=== PATIENT | male | born 1950 | race African-American/Black ===

== ENCOUNTER 2019-02-26 18:50 | Inpatient (IN) | payer MEDICARE, MEDICAID ==
[~2019-02-26] VITALS: Ht 190.5 cm; Wt 90.8 kg
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
[2019-02-26] MEDS ORDERED: IV RINGERS SOLUTION,LACTATED 1,000 ML IV SCH (19:15)
[2019-02-26 19:42] LABS: BASO % 1 % (0-3); EOS % 1 % (0-3); HEMATOCRIT 39.3 % (39.0-53.0); HEMOGLOBIN 12.9 g/dL (13.0-17.5); LYMPH # 1.8 x10^3/uL (1.0-4.8); LYMPH % 33 % (24-48); MEAN CORPUSCULAR HEMOGLOBIN 31 pg (25-35); MEAN CORPUSCULAR HGB CONC 33 g/dL (31-37); MEAN CORPUSCULAR VOLUME 95 fL (79-100); MONO # 0.7 x10^3/uL (0.0-1.1); MONO % 14 % (0-9); NEUT # 2.8 x10^3uL (1.8-7.7); NEUT % 52 % (31-73); PLATELET COUNT 87 x10^3/uL (140-400); RED BLOOD COUNT 4.13 x10^6/uL (4.30-5.70); WHITE BLOOD COUNT 5.5 x10^3/uL (4.0-11.0)
[2019-02-26] MEDS ORDERED: ZIPRASIDONE 20 MG CAPSULE. PO STA (19:53)
[2019-02-26] MEDS ORDERED: diphenhydrAMINE HCL 25 MG CAPSULE PO ONE ×2 (20:00)
[2019-02-26] MEDS ORDERED: LORazepam 1 MG TABLET PO ONE ×2 (20:00)
[2019-02-26] MEDS ORDERED: MEDR10TA3 PO (20:05)
[2019-02-26] MEDS ORDERED: SERT50TA PO (20:05)
[2019-02-26] MEDS ORDERED: ZIPR40CA2 PO (20:05)
[2019-02-26] MEDS ORDERED: DIVA250T PO (20:05)
[2019-02-26] MEDS ORDERED: [UNRECOGNIZED DRUG - CODE] TP (20:05)
[2019-02-26] MEDS ORDERED: DIVA500T4 PO (20:05)
[2019-02-26] MEDS ORDERED: TRAZ-86 PO (20:05)
[2019-02-26] MEDS ORDERED: ACET500T68 PO (20:05)
[2019-02-26] MEDS ORDERED: ZIPR20CA2 PO (20:05)
[2019-02-26] MEDS ORDERED: LACT20SO PO (20:05)
[2019-02-26 20:07] LABS: ALBUMIN 3.8 g/dL (3.4-5.0); CALCIUM 9.2 mg/dL (8.5-10.1); CREATININE 1.1 mg/dL (0.7-1.3); DIRECT BILIRUBIN 0.2 mg/dL (0.0-0.2); GFR 80.3; MAGNESIUM 2.1 mg/dL (1.8-2.4); POTASSIUM 4.2 mmol/L (3.5-5.1); TOTAL BILIRUBIN 0.7 mg/dL (0.2-1.0); TOTAL PROTEIN 7.1 g/dL (6.4-8.2)
[2019-02-26 20:54] LABS: SEDIMENTATION RATE 5 (0-15)
[2019-02-26] MEDS ORDERED: ZIPRASIDONE IM 20 MG VIAL. IM ONE ×3 (21:09→22:00)
[2019-02-26 21:36] LABS: BARBITURATES NEG (NEG); BENZODIAZEPINES NEG (NEG); CANNABINOIDS NEG (NEG); COCAINE NEG (NEG); METHADONE NEG (NEG); OPIATES NEG (NEG); PHENCYCLIDINE NEG (NEG)
[2019-02-26 21:40] LABS: AMPHETAMINE/METHAMPHETAMINE NEG (NEG)
[2019-02-26 21:55] LABS: BILIRUBIN,URINE NEG (NEG); CLARITY,URINE CLEAR; COLOR,URINE YELLOW; GLUCOSE,URINE NEG (NEG)
[2019-02-26 21:56] LABS: BACTERIA,URINE 0 /HPF (0-FEW); NITRITE,URINE NEG (NEG); RBC,URINE 0 /HPF (0-2); SQUAMOUS EPITHELIAL CELL,UR FEW /LPF; UROBILINOGEN,URINE 0.2 mg/dL (0.2 mg/dL); WBC,URINE OCC /HPF (0-4)
--- NOTE | 2019-02-26 21:59 | RAD ---
Exam: CT head INDICATION: Mental status change TECHNIQUE: Sequential axial images through the head were obtained without the administration of IV contrast. Comparisons: None FINDINGS: No focal parenchymal lesion or hemorrhage is identified. There is no midline shift or sulcal effacement. No acute vascular territory infarction is identified. Miller-white distinction is preserved. The ventricular system is within normal limits without compression hydrocephalus. The basal cisterns are well maintained. The visualized portions of the paranasal sinuses and mastoid air cells are well-pneumatized. No acute fractures. IMPRESSION: No acute intracranial abnormality. Exposure: One or more of the following in the visualized dose reduction techniques were utilized for this examination: 1. Automated exposure control 2. Adjustment of the MA and/or KV according to patient size Use of iterative of reconstructive technique Electronically signed by: Esha Rodrigues MD (02/26/2019 9:56 PM) [facility]
--- NOTE | 2019-02-26 22:33 | RAD ---
Exam: Chest one view INDICATION: Dyspnea TECHNIQUE: Frontal view of the chest Comparisons: None FINDINGS: The cardiomediastinal silhouette and pulmonary vessels are within normal limits. The lung and pleural spaces are clear. IMPRESSION: No acute cardiopulmonary process. Electronically signed by: Esha Rodrigues MD (02/26/2019 10:30 PM) [facility]
[2019-02-26] MEDS ORDERED: MAG HYDROX/AL HYDROX/SIMETH 30 ML ORAL.SUSP PO PRN (23:45)
[2019-02-26] MEDS ORDERED: MAGNESIUM HYDROXIDE 2,400 MG/30 ML ORAL.SUSP. PO PRN (23:45)
[2019-02-26] MEDS ORDERED: METHYL SALICYLATE/MENTHOL TOPICAL OINTMENT 29GM TUBE. TP PRN (23:45)
[2019-02-26] MEDS ORDERED: NON FORMULARY ITEM (Acetaminophen 500 MG) PO PRN (23:45)
[2019-02-26] MEDS ORDERED: ACETAMINOPHEN 325 MG TABLET PO PRN (23:45)
[2019-02-27 00:09] VITALS: BP 136/80
--- NOTE | 2019-02-27 00:15 | NUR ---
Admission Note with Justification for Admission to [facility] Patient admitted to [facility] for protective oversight for emergency stabilization of acute psychiatric crisis. Pt admitted from: [facility] ER/ [facility] Mode of arrival: EMS Accompanied By: EMS/ [facility] Nursing Yarn Worker Precipitating behaviors that initiated intake and admission: aggressive, increased agitation, combative- striking out at other residents and staff, threatening to kill others, and non-compliant with cares. Description of failure of out patient attempts at stabilization in previous setting list behavior and medication trials: Medication changes to Depakote and Geodon, psychiatry appointments, ER visit, and 1:1 supervision. Behaviors and assessment findings upon admission: Pt is sedated upon arrival r/t medications administered in the ER. Staff provided grecia care and changed pt into a hospital gown, assessment completed. Bed low and locked, alarm in place. Plan: Admit for protective oversight for adjustment and stabilization of medications, behaviors and mood. Intense treatment regimen including groups, medication adjustments, therapy, consistent regimen for ADL's, self care, and sleep hygiene. Daily monitoring by Inpatient staff, Psychiatry, and Medical Physician.
--- NOTE | 2019-02-27 02:02 | EKG ---
[address] [address] Test Date: 2019-02-26 Test Time: 19:05:09 Pat Name: ZENON HAM Department: Room: [facility] 1 Gender: M Bank Note Designer: ARMEN : 1950 Requested By: SELWYN CRUZ Order Number: [id number] Reading MD: Hiren Hernandez MD Measurements Intervals [place] Rate: 95 P: -56 SC: 144 QRS: 3 QRSD: 68 T: 53 QT: 346 QTc: 438 Interpretive Statements SINUS RHYTHM PAC Electronically Signed On 03-16-2019 23:20:50 CDT by Hiren Hernandez MD
[2019-02-27 04:19] VITALS: BP 118/75
[2019-02-27 07:12] LABS: VAL ACID 45 mcg/mL (50-100)
[2019-02-27 07:47] LABS: BASO % 1 % (0-3); EOS # 0.1 x10^3/uL (0.0-0.7); EOS % 2 % (0-3); HEMOGLOBIN 12.8 g/dL (13.0-17.5); LYMPH # 1.2 x10^3/uL (1.0-4.8); LYMPH % 36 % (24-48); MEAN CORPUSCULAR HEMOGLOBIN 32 pg (25-35); MEAN CORPUSCULAR HGB CONC 33 g/dL (31-37); MEAN CORPUSCULAR VOLUME 96 fL (79-100); MONO # 0.4 x10^3/uL (0.0-1.1); MONO % 12 % (0-9); NEUT # 1.7 x10^3uL (1.8-7.7); NEUT % 50 % (31-73); PLATELET COUNT 83 x10^3/uL (140-400); RED BLOOD COUNT 4.06 x10^6/uL (4.30-5.70); RED CELL DISTRIBUTION WIDTH 13.1 % (11.5-14.5); WHITE BLOOD COUNT 3.4 x10^3/uL (4.0-11.0)
[2019-02-27] MEDS: DIVALPROEX ER 250 MG TAB.ER.24H. PO SCH ×2 (08:06→09:19)
[2019-02-27] MEDS: medroxyPROGESTERone 5 MG TABLET PO SCH ×2 (08:06→09:19)
[2019-02-27] MEDS: SERTRALINE 50 MG TABLET. PO SCH ×2 (08:06→09:19)
[2019-02-27] MEDS: ZIPRASIDONE 40 MG CAPSULE. PO SCH ×5 (08:07→15:50)
[2019-02-27] MEDS: LACTULOSE 20 GM/30 ML SOLUTION. PO SCH ×2 (08:07→09:19)
[2019-02-27 08:09] LABS: ALBUMIN 3.5 g/dL (3.4-5.0); CALCIUM 9.2 mg/dL (8.5-10.1); CREATININE 1.1 mg/dL (0.7-1.3); GFR 80.3; TOTAL PROTEIN 6.9 g/dL (6.4-8.2)
[2019-02-27] MEDS: VITS A & D/LANOLIN TOPICAL OINTMENT 56GM TUBE. TP SCH ×2 (09:00→20:28)
--- NOTE | 2019-02-27 10:31 | NUR ---
Sleeping without observed distress since 7 a.m. Has moved position in bed, respirations non labored. Will continue to monitor. PCs to SW and intake nurse to discuss paperwork signed by facility prior to arriving to [facility]. Clarification awaiting after DPOA contacted by [facility].
[2019-02-27] MEDS ORDERED: ZIPRASIDONE 20 MG CAPSULE. PO SCH (13:00)
--- NOTE | 2019-02-27 15:19 | NUR ---
Awoke around 13:00 after lunch. Had been incontinent of urine. Up with assist of 3 to bathroom. Pt. unable to bend knees to sit on the toilet. Finally he was redirected to sit in bedside chair where his clothes were changed and grecia care done. Ambulated to day room to eat lunch. Required much assistance. Took meds whole in pudding, chewing up pills. Sat with eyes closed, much prompting needed for him to open eyes. He did feed self some items with finger food. Speech coherent when he did reply, but not oriented to anything. Would say "yes maam" then eventually would remark "I am sitting up!" After eating, he sat in chair in dayroom, catatonic type posture, then leaning to one side. Escorted back to bed with assist of two per w/c. Very stiff, and difficult to direct to bend knees. Sleeping without observed distress since, HOB slightly elevated.
--- NOTE | 2019-02-27 15:50 | NUR ---
Medication selected in error. not given, returned and pt. is sedated as a.m. meds were not taken until 1300.
[2019-02-27 16:07] LABS: THYROXINE 5.3 ug/dL (4.5-12.0)
[2019-02-27 16:19] VITALS: BP 153/83
--- NOTE | 2019-02-27 17:36 | NUR ---
Pt. has continued to sleep this afternoon, since placed back in bed after unable to sit up safely in the dayroom. Did not admin. 1300 Geodon due to sedation. Resps non labored, turns self in bed occasionally. Did not arouse to voice when Dr. Soni assessed.
[2019-02-27] MEDS: traZODone 100 MG TABLET. PO SCH (20:28)
[2019-02-27 20:56] VITALS: BP 115/75
[2019-02-27] MEDS ORDERED: DIVALPROEX ER 500 MG TAB.ER.24H PO SCH (21:00)
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
--- NOTE | 2019-02-27 22:59 | PDOC ---
Exam Note: German Note: Please also refer to the separate dictated note~for this date of service dictated separately.~Patient seen individually. Discussed the patient with Nursing staff reviewed the chart.~Reviewed interim history and current functioning. Reviewed vital signs,~Labs/ Radiology~and current medications noted below. Continue current treatment with the changes noted in the dictated addendum note Assessment: Vital Signs/I&O: Vital Signs Date Time Temp Pulse Resp B/P (MAP) Pulse Ox O2 Delivery O2 Flow Rate FiO2 02/27/19 20:56 84 115/75 (88) 02/27/19 16:19 97.5 18 98 02/27/19 04:19 Room Air Labs: Laboratory Tests Test 02/27/19 07:12 White Blood Count 3.4 x10^3/uL (4.0-11.0) L Red Blood Count 4.06 x10^6/uL (4.30-5.70) L Hemoglobin 12.8 g/dL (13.0-17.5) L Hematocrit 39.0 % (39.0-53.0) Mean Corpuscular Volume 96 fL (79-100) Mean Corpuscular Hemoglobin 32 pg (25-35) Mean Corpuscular Hemoglobin Concent 33 g/dL (31-37) Red Cell Distribution Width 13.1 % (11.5-14.5) Platelet Count 83 x10^3/uL (140-400) L Neutrophils (%) (Auto) 50 % (31-73) Lymphocytes (%) (Auto) 36 % (24-48) Monocytes (%) (Auto) 12 % (0-9) H Eosinophils (%) (Auto) 2 % (0-3) Basophils (%) (Auto) 1 % (0-3) Neutrophils # (Auto) 1.7 x10^3uL (1.8-7.7) L Lymphocytes # (Auto) 1.2 x10^3/uL (1.0-4.8) Monocytes # (Auto) 0.4 x10^3/uL (0.0-1.1) Eosinophils # (Auto) 0.1 x10^3/uL (0.0-0.7) Basophils # (Auto) 0.0 x10^3/uL (0.0-0.2) Sodium Level 144 mmol/L (136-145) Potassium Level 4.0 mmol/L (3.5-5.1) Chloride Level 108 mmol/L (98-107) H Carbon Dioxide Level 28 mmol/L (21-32) Anion Gap 8 (6-14) Blood Urea Nitrogen 20 mg/dL (8-26) Creatinine 1.1 mg/dL (0.7-1.3) Estimated GFR (Cockcroft-Gault) 80.3 BUN/Creatinine Ratio 18 (6-20) Glucose Level 91 mg/dL (70-99) Calcium Level 9.2 mg/dL (8.5-10.1) Total Bilirubin 1.0 mg/dL (0.2-1.0) Aspartate Amino Transferase (AST) 16 U/L (15-37) Alanine Aminotransferase (ALT) 18 U/L (16-63) Alkaline Phosphatase 44 U/L (46-116) L Total Protein 6.9 g/dL (6.4-8.2) Albumin 3.5 g/dL (3.4-5.0) Albumin/Globulin Ratio 1.0 (1.0-1.7) Current Medications: Meds: Current Medications Medications (Trade) Dose Ordered Sig/Edward Route PRN Reason Start Time Stop Time Status Last Admin Dose Admin Multi-Ingredient Ointment (Analgesic Vale) 1 baljinder PRN QID PRN TP MUSCLE PAIN 02/26/19 23:45 02/27/19 09:20 Sertraline HCl (Zoloft) 50 mg DAILY PO 02/27/19 09:00 02/27/19 09:19 Divalproex Sodium (Depakote Er) 750 mg DAILY PO 02/27/19 09:00 02/27/19 21:26 DC 02/27/19 09:19 Divalproex Sodium (Depakote Er) 1,000 mg QHS PO 02/27/19 21:00 02/27/19 21:26 DC 02/27/19 20:28 Medroxyprogesterone Acetate (Provera) 10 mg DAILY PO 02/27/19 09:00 02/27/19 09:19 Trazodone HCl (Desyrel) 100 mg QHS PO 02/27/19 21:00 02/27/19 20:28 Ziprasidone (Geodon) 40 mg BID PO 02/27/19 09:00 02/28/19 22:00 02/27/19 15:47 Lactulose (Lactulose) 20 gm DAILY PO 02/27/19 09:00 02/27/19 09:19 Vitamin A/Vitamin D (Vitamin A & D Ointment) 1 baljinder BID TP 02/27/19 09:00 02/27/19 20:28 I have reviewed the current psychotropics carefully including drug interactions. Risk benefit ratio favors no change other than as noted in my dictated progress note. 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
[2019-02-28 01:11] LABS: HEMOGLOBIN A1C 5.8 % (4.8-5.6)
--- NOTE | 2019-02-28 01:37 | CONS ---
DATE OF CONSULTATION: 02/27/2019 REASON FOR CONSULTATION: Medical management. HISTORY OF PRESENT ILLNESS: The patient is a 68-year-old -[place] male patient, a resident at [facility], who [facility] on account of being agitated, aggressive, striking out at staff and other resident. He is noncompliant with ADLs, threatening to kill others, all this in a background of paranoid schizophrenia with acute exacerbation. Apparently, the patient was very agitated and aggressive in the Emergency Room, was given Geodon and Ativan as well as diphenhydramine and he became extremely sedated and in fact, by the time I saw him, he was still very sleepy. PAST MEDICAL HISTORY: Significant for hypertension, hyperlipidemia, anemia and thrombocytopenia. PAST PSYCHIATRIC HISTORY: Significant for dementia, depression and schizophrenia. PAST SURGICAL HISTORY: Unremarkable. REVIEW OF SYSTEMS: Unobtainable. FAMILY HISTORY: Unavailable. SOCIAL HISTORY: He is a resident at [facility], no further information available. ALLERGIES: He has no known drug allergies. MEDICATIONS: He is currently on following medications: He is on acetaminophen 500 mg every 6 hours, divalproex 1000 mg at bedtime. He is also on Depakote extended release 750 mg daily, sertraline 50 mg daily, trazodone 100 mg at bedtime, ziprasidone 20 mg afternoon and ziprasidone 40 mg twice a day. He is on lactulose 30 mL p.o. daily. He is on medroxyprogesterone acetate 10 mg once a day, vitamin A and D ointment applied topically twice a day. PHYSICAL EXAMINATION: GENERAL: When I examined him, the patient was resting slightly propped up in bed, in no apparent respiratory distress. He is very lethargic, arousable; however, there was no pallor, jaundice, cyanosis, or thyromegaly. No jugular venous distension. No limb edema. VITAL SIGNS: His heart rate was 71, blood pressure was 153/83, temperature was 97.5, respiratory rate was 18 and oxygen saturation was 98%. HEAD, EYES, EARS, NOSE, AND THROAT: Showed normocephalic, atraumatic. NECK: Supple, with no lymphadenopathy, no thyromegaly. No jugular venous distension, no audible bruit. HEART: Showed normal first and second heart sounds with no gallop or murmur. CHEST: Clear to auscultation. No crepitation or rhonchi. ABDOMEN: Distended, soft, nontender. NEUROLOGIC: He was extremely sedated; however, he is grossly intact. He is normally up and about without assistance or assistive devices. LABORATORY DATA: Showed a white cell count of 3400, hemoglobin 12.8, hematocrit 39, MCV 96, and platelet count of 83,000 with normal manual differential. His chemistry showed a serum sodium 144, potassium 4, chloride 108, bicarbonate 28, anion gap of 8, BUN 20, creatinine 1.1, estimated GFR was 80 mL per minute. His glucose was 91, calcium was 9.2. Serum iron 47, TIBC 252 and iron saturation was 19%. His total bilirubin, AST, ALT, alkaline phosphatase were normal. Total protein was 6.9, albumin 3.5. His triglycerides were 55%, total cholesterol 151, LDL was 84, VLDL was 84. His HDL was 60 and the ratio was 2. His TSH was slightly elevated at 4.425, however, his T4 was 5.3 and total T3 was 114, which is well within normal range. His prothrombin time, INR and aPTT are all normal. Urinalysis was basically unremarkable and was negative. Tox screen was negative. IMPRESSION: In summary, this is a 68-year-old -[place] male patient, a resident at [facility], who was admitted on account of being aggressive, agitated, striking out at staff and other resident, noncompliant with ADLs, threatening to kill others, all this workup is a background of paranoid schizophrenia. He seemed to be fairly stable. All his vital signs are within acceptable range and all his lab works are also within normal range. The only abnormality is obviously his thrombocytopenia that we will probably have to keep an eye on it and if it drops below 50, but obviously arrange for him to be seen by the country printer/oncologist. Thank you, Dr. Villalpando for allowing me to participate in the care of this patient. ANTONETTE KELLY MD DR: ASHOK/sung JOB#: [id number] / [id number]
[2019-02-28 05:44] VITALS: BP 131/77
[2019-02-28] MEDS: SERTRALINE 50 MG TABLET. PO SCH (07:25)
[2019-02-28] MEDS: ZIPRASIDONE 40 MG CAPSULE. PO SCH (07:26)
[2019-02-28] MEDS: medroxyPROGESTERone 5 MG TABLET PO SCH (07:27)
[2019-02-28] MEDS: LACTULOSE 20 GM/30 ML SOLUTION. PO SCH (07:27)
[2019-02-28] MEDS: VITS A & D/LANOLIN TOPICAL OINTMENT 56GM TUBE. TP SCH ×2 (07:28→20:46)
--- NOTE | 2019-02-28 10:30 | NUR ---
Ana Cristinae had found him incontinent in bed and room, urine covered floor, had repositioned self onto other empty bed. Approached and asked him if he would like to eat breakfast. Asked remote mortgage underwriter "what time is it?" Ambulated with SBA to dining room, sat with redirection. He was late and only one in the dining room at the time. Answered questions with one word responses at times. Other times non responsive. Attempted to give meds whole by spoon in pudding. He spit them all out. Instructed these were his morning meds and needed to take. Crushed and hidden in pudding. Fed by spoon in small bites with distraction. Gait unsteady, balance off at times. SBA of one with constant redirection of where to go. Confused, speech clear. Showered with assist of 4. He was resistive but non combative, although very strong and agitated. Afterward returned to clean bed and slept with no observed distress.
[2019-02-28] MEDS: traZODone 100 MG TABLET. PO SCH (20:46)
[2019-02-28] MEDS: DIVALPROEX 125 MG CAP.SPRINK PO SCH (20:48)
[2019-02-28] MEDS ORDERED: DIVALPROEX ER 500 MG TAB.ER.24H PO SCH (21:00)
[2019-02-28] MEDS ORDERED: DIVALPROEX ER 250 MG TAB.ER.24H. PO SCH (21:00)
--- NOTE | 2019-02-28 22:07 | PDOC ---
Exam Note: German Note: Please also refer to the separate dictated note~for this date of service dictated separately.~Patient seen individually. Discussed the patient with Nursing staff reviewed the chart.~Reviewed interim history and current functioning. Reviewed vital signs,~Labs/ Radiology~and current medications noted below. Continue current treatment with the changes noted in the dictated addendum note Assessment: Vital Signs/I&O: Vital Signs Date Time Temp Pulse Resp B/P (MAP) Pulse Ox O2 Delivery O2 Flow Rate FiO2 02/28/19 05:44 98.0 72 20 131/77 (95) 99 Room Air I & O 02/27/19 02/27/19 02/28/19 15:00 23:00 07:00 Intake Total 240 ml 480 ml Balance 240 ml 480 ml Current Medications: Meds: Current Medications Medications (Trade) Dose Ordered Sig/Edward Route PRN Reason Start Time Stop Time Status Last Admin Dose Admin Divalproex Sodium (Depakote Sprinkles) 1,000 mg HS PO 02/28/19 21:00 02/28/19 20:48 I have reviewed the current psychotropics carefully including drug interactions. Risk benefit ratio favors no change other than as noted in my dictated progress note. Diagnosis: Problems: (1) Paranoid schizophrenia (2) Anxiety disorder (3) Impulse control disorder (4) Schizoaffective disorder, bipolar type (5) Schizophrenia, paranoid, chronic with acute exacerbation (6) Mixed Alzheimer's and vascular dementia with behavior disturbances VAIBHAV RENAE MD Feb 28, 2019 22:07
--- NOTE | 2019-02-28 22:08 | NUR ---
Patient already in bed at 2100 med pass. Nurse woke patient up and provided medications crushed in boost telling patient it was a "protein drink". Patient stated he was hungry and hadn't had dinner. After drinking some of boost with medication, patient wandered in hallway and then into day room where he was provided snack and drank the remainder of the "protein drink". He then wandered in hallway for about 20 minutes and was redirected to the day room where he sat on the couch. No combativeness or aggression noted at this time. Patient allowed nurse to apply A&D ointment on his BLEs per order as his skin is dry and flaky. Patient appears to be only oriented to himself, he was able to state his name and will look toward this nurse when name is called. He is currently up ad georges without assistive devices but has unsteady gait at times. Depakote ER HS was changed to Depakote Sprinkles BID by Dr. Villalpando as patient is unable/unwilling to take medications whole at this time.
--- NOTE | 2019-03-01 04:24 | NUR ---
Patient up out of bed since 2129. He was initially wandering in hallway and then sitting in day room taking short "cat naps". Patient would not stay in his bed in his room. Not combative or aggressive, just difficult to direct to bed. According to report he slept most of the dayshift on Friday, only getting up for meals and then a bit after dinner. Patient had scheduled Trazodone 100mg at HS, which he was compliant with. He does not have a repeat dose. He may need something else for sleep-will pass on in morning report.
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
[2019-03-01] MEDS: medroxyPROGESTERone 5 MG TABLET PO SCH (07:39)
[2019-03-01] MEDS: SERTRALINE 50 MG TABLET. PO SCH (07:39)
[2019-03-01] MEDS: LACTULOSE 20 GM/30 ML SOLUTION. PO SCH (07:39)
[2019-03-01] MEDS: VITS A & D/LANOLIN TOPICAL OINTMENT 56GM TUBE. TP SCH ×2 (07:39→20:13)
[2019-03-01] MEDS: ZIPRASIDONE 60 MG CAPSULE. PO SCH ×2 (08:24→20:12)
[2019-03-01] MEDS: DIVALPROEX 125 MG CAP.SPRINK PO SCH ×2 (08:24→20:12)
--- NOTE | 2019-03-01 15:33 | NUR ---
Patient was observed in the hallway sitting a chair with his eye closed, he did not attend breakfast, he woke up at lunch time, he was given his daily medications and walked down the the cafeteria, he ate his lunch and was observed lying in his bed the rest of the afternoon.
[2019-03-01 15:58] VITALS: BP 113/71
--- NOTE | 2019-03-01 16:16 | NUR ---
SW attempted to contact pt dtr, Rose, to complete psychosocial assessment. SW left a note asking that pt dtr contact SW when possible.
--- NOTE | 2019-03-01 16:22 | NUR ---
KWASI contacted [facility] in [place] and spoke with Donny the community engagement manager. KWASI explained that the wedding coordinator checked 2x to ensure that pt would be returning once stabilized; however, nursing staff got in report and saw on notes that pt had 24 hours to be out and [facility] would not take pt back. Donny clarified "as much as our nursing staff does not want Mr. Dunaway back, we will be taking him back. We are going to put that responsibility on you, but more than anything, it is not fair to him. So yes, we will be taking him back". KWASI did offer to work with the SW in aiding in referrals for placement. Donny reports that a lot of facilities have said no. The hope is to have pt behaviors more stabilized in order to find a facility that will take a chance on him. KWASI will await to hear back from their KWASI, Yue, and go from there.
[2019-03-01] MEDS: traZODone 100 MG TABLET. PO SCH (20:12)
[2019-03-01] MEDS: MIRTAZAPINE 7.5 MG TABLET. PO SCH (20:12)
--- NOTE | 2019-03-01 20:52 | NUR ---
Nursing Note: Assumed care of pt. this evening, he was lying in his bed. He has been calm, drowsy, and cooperative. He has been compliant with taking his HS med crushed in pudding this evening. No agitation, aggression, or behaviors noted at this time.
[2019-03-01] MEDS ORDERED: DIVALPROEX ER 500 MG TAB.ER.24H PO SCH (21:00)
[2019-03-01] MEDS ORDERED: DIVALPROEX ER 250 MG TAB.ER.24H. PO SCH (21:00)
--- NOTE | 2019-03-01 22:27 | PDOC ---
Exam Note: German Note: Please also refer to the separate dictated note~for this date of service dictated separately.~Patient seen individually. Discussed the patient with Nursing staff reviewed the chart.~Reviewed interim history and current functioning. Reviewed vital signs,~Labs/ Radiology~and current medications noted below. Continue current treatment with the changes noted in the dictated addendum note Assessment: Vital Signs/I&O: Vital Signs Date Time Temp Pulse Resp B/P (MAP) Pulse Ox O2 Delivery O2 Flow Rate FiO2 03/01/19 15:58 97.0 75 16 113/71 (85) 100 02/28/19 05:44 Room Air I & O 02/28/19 02/28/19 03/01/19 14:59 22:59 06:59 Intake Total 0 ml 480 ml Balance 0 ml 480 ml Current Medications: Meds: Current Medications Medications (Trade) Dose Ordered Sig/Edward Route PRN Reason Start Time Stop Time Status Last Admin Dose Admin Ziprasidone (Geodon) 60 mg BID PO 03/01/19 09:00 03/01/19 20:12 Divalproex Sodium (Depakote Sprinkles) 750 mg DAILY PO 03/01/19 09:00 03/01/19 08:24 Mirtazapine (Remeron) 7.5 mg QHS PO 03/01/19 21:00 03/01/19 20:12 I have reviewed the current psychotropics carefully including drug interactions. Risk benefit ratio favors no change other than as noted in my dictated progress note. 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
--- NOTE | 2019-03-02 04:14 | PN ---
DATE: 02/28/2019 PSYCHIATRIC PROGRESS NOTE This late entry, 02/28/2019, covers elements not covered in my initial note. SUBJECTIVE: I met with the patient in the evening of 02/28/2019. The patient slept 6-1/4 hours previous night. Previous night, he was combative in the shower, refused to shower. On 02/28/2019 it took 4 staff members to guide him through the shower. He has been incontinent of urine and unsteady in his gait. EKG, QTC interval is less than 500 milliseconds. He is oriented just to himself and when asked his name he is able to say it appropriately, but when asked his date of he repeats his name again. He has difficulty taking the Depakote ER 1750 at night and we will change it to 750 Sprinkles in the morning and 1000 mg at night. REVIEW OF SYSTEMS: No CV, , pulmonary, eye, ENT system symptoms on review. Reliability poor. MENTAL STATUS EXAM: Oriented to himself. Insight, judgment, recent and remote memory, attention, concentration, fund of knowledge poor, consistent with his diagnosis mentioned in my initial note. IMPRESSION: Schizoaffective disorder, bipolar type, mixed with psychotic features, schizophrenia, chronic paranoid with acute exacerbation, major neurocognitive disorder, Alzheimer, vascular with delusion, depression, behavioral disturbance. Rest unchanged. PLAN: Continue current psychotropics other than the changes noted above. Follow labs level on the Depakote, adjust to therapeutic level. On 02/27/2019, the level was 45 and Geodon will be increased on 03/01/2019 to 60 mg b.i.d. MAN Joyce RENAE MD DR: ROMINA/sung JOB#: [id number] / [id number]
[2019-03-02 04:16] VITALS: BP 134/76
[2019-03-02 08:06] LABS: ALBUMIN 3.4 g/dL (3.4-5.0); ALK PHOS 39 U/L (46-116); ALT (SGPT) 16 U/L (16-63); ANION GAP 7 (6-14); AST (SGOT) 11 U/L (15-37); BLOOD UREA NITROGEN 18 mg/dL (8-26); BUN/CREATININE RATIO 18 (6-20); CALCIUM 8.9 mg/dL (8.5-10.1); CARBON DIOXIDE 30 mmol/L (21-32); CHLORIDE 107 mmol/L (98-107); GFR 89.6; GLUCOSE 84 mg/dL (70-99); SODIUM 144 mmol/L (136-145); TOTAL PROTEIN 6.7 g/dL (6.4-8.2)
[2019-03-02 08:11] LABS: VAL ACID 60 mcg/mL (50-100)
[2019-03-02 08:29] LABS: BASO % 0 % (0-3); EOS # 0.1 x10^3/uL (0.0-0.7); EOS % 2 % (0-3); HEMOGLOBIN 12.6 g/dL (13.0-17.5); LYMPH # 1.6 x10^3/uL (1.0-4.8); LYMPH % 40 % (24-48); MEAN CORPUSCULAR HEMOGLOBIN 32 pg (25-35); MEAN CORPUSCULAR HGB CONC 33 g/dL (31-37); MEAN CORPUSCULAR VOLUME 95 fL (79-100); MONO # 0.5 x10^3/uL (0.0-1.1); MONO % 12 % (0-9); NEUT # 1.8 x10^3uL (1.8-7.7); NEUT % 45 % (31-73); PLATELET COUNT 78 x10^3/uL (140-400); RED BLOOD COUNT 3.99 x10^6/uL (4.30-5.70); RED CELL DISTRIBUTION WIDTH 12.9 % (11.5-14.5)
[2019-03-02] MEDS: medroxyPROGESTERone 5 MG TABLET PO SCH (08:53)
[2019-03-02] MEDS: LACTULOSE 20 GM/30 ML SOLUTION. PO SCH (08:53)
[2019-03-02] MEDS: ZIPRASIDONE 60 MG CAPSULE. PO SCH (08:53)
[2019-03-02] MEDS: SERTRALINE 50 MG TABLET. PO SCH (08:53)
[2019-03-02] MEDS: DIVALPROEX 125 MG CAP.SPRINK PO SCH ×2 (08:53→19:41)
[2019-03-02] MEDS: VITS A & D/LANOLIN TOPICAL OINTMENT 56GM TUBE. TP SCH ×2 (09:00→19:52)
--- NOTE | 2019-03-02 09:12 | NUR ---
Nursing Note: Pt was gently redirected in the dining room by staff and pt said, "Get your Goddamn hands off me." Pt is due for a shower this morning, and it required 4 staff members to accomplish over the weekend; therefore, PRN given for agitation as well as prep for shower. Will continue to monitor.
--- NOTE | 2019-03-02 13:45 | EKG ---
[address] [address] Test Date: 2019-02-28 Test Time: 12:32:17 Pat Name: ZENON HAM Department: Room: [facility] 1 Gender: Relay Associate: : 1950 Requested By: VAIBHAV RENAE Order Number: [id number] Reading MD: Hiren Hernandez MD Measurements Intervals [place] Rate: P: VA: QRS: QRSD: T: QT: QTc: Interpretive Statements SR Electronically Signed On 03-16-2019 23:40:20 CDT by Hiren Hernandez MD
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
[2019-03-02 15:48] VITALS: BP 136/73
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
[2019-03-02] MEDS: traZODone 100 MG TABLET. PO SCH (19:41)
[2019-03-02] MEDS: MIRTAZAPINE 7.5 MG TABLET. PO SCH (19:41)
[2019-03-02] MEDS: ZIPRASIDONE 80 MG CAPSULE. PO SCH (19:43)
--- NOTE | 2019-03-02 22:25 | PN ---
DATE: 03/01/2019 PSYCHIATRIC PROGRESS NOTE. This late entry of 03/01/2019 covers the elements not covered in my initial note. SUBJECTIVE: I met with the patient in the evening of 03/01/2019. The patient slept just 3-1/4 hours previous night. He was sedated until lunchtime making up for the insomnia previous night. After that he has been quite confused, remains psychotic. Early in the morning at 5:15 a.m., he was combative, was taken to the day room, received Zyprexa and then did better. REVIEW OF SYSTEMS: No CV, , pulmonary, eye, ENT system symptoms on review. Reliability poor. MENTAL STATUS EXAM: Oriented to himself. Insight, judgment, recent and remote memory, attention, concentration, fund of knowledge poor, consistent with his diagnosis mentioned in my initial note. IMPRESSION: Schizophrenia, chronic, paranoid with acute exacerbation; major neurocognitive disorder; Alzheimer, vascular with delusion; depression; behavioral disturbance; anxiety disorder, unspecified; impulse control disorder, unspecified. PLAN: Start Remeron 7.5 mg at bedtime to help with insomnia; trazodone is 100 mg at bedtime, we may repeat it x 1 for insomnia. Continue rest of the psychotropics, Zoloft, Geodon and Depakene. Follow labs level on the Depakote and adjust to reach therapeutic level. MAN Joyce RENAE MD DR: ROMINA/sung JOB#: [id number] / [id number]
--- NOTE | 2019-03-02 22:26 | PDOC ---
Exam Note: German Note: Please also refer to the separate dictated note~for this date of service dictated separately.~Patient seen individually. Discussed the patient with Nursing staff reviewed the chart.~Reviewed interim history and current functioning. Reviewed vital signs,~Labs/ Radiology~and current medications noted below. Continue current treatment with the changes noted in the dictated addendum note Assessment: Vital Signs/I&O: Vital Signs Date Time Temp Pulse Resp B/P (MAP) Pulse Ox O2 Delivery O2 Flow Rate FiO2 03/02/19 15:48 98.3 86 20 136/73 (94) 98 03/02/19 04:16 Room Air I & O 03/01/19 03/01/19 03/02/19 15:00 23:00 07:00 Intake Total 480 ml 240 ml Balance 480 ml 240 ml Labs: Laboratory Tests Test 03/02/19 05:00 03/02/19 06:40 Sodium Level 144 mmol/L (136-145) Potassium Level 4.0 mmol/L (3.5-5.1) Chloride Level 107 mmol/L (98-107) Carbon Dioxide Level 30 mmol/L (21-32) Anion Gap 7 (6-14) Blood Urea Nitrogen 18 mg/dL (8-26) Creatinine 1.0 mg/dL (0.7-1.3) Estimated GFR (Cockcroft-Gault) 89.6 BUN/Creatinine Ratio 18 (6-20) Glucose Level 84 mg/dL (70-99) Calcium Level 8.9 mg/dL (8.5-10.1) Total Bilirubin 1.0 mg/dL (0.2-1.0) Aspartate Amino Transferase (AST) 11 U/L (15-37) L Alanine Aminotransferase (ALT) 16 U/L (16-63) Alkaline Phosphatase 39 U/L (46-116) L Total Protein 6.7 g/dL (6.4-8.2) Albumin 3.4 g/dL (3.4-5.0) Albumin/Globulin Ratio 1.0 (1.0-1.7) Valproic Acid Level 60 mcg/mL (50-100) Valproic Acid Last Dose Date 03/01/19 Valproic Acid Last Dose Time 2100 White Blood Count 4.0 x10^3/uL (4.0-11.0) Red Blood Count 3.99 x10^6/uL (4.30-5.70) L Hemoglobin 12.6 g/dL (13.0-17.5) L Hematocrit 38.0 % (39.0-53.0) L Mean Corpuscular Volume 95 fL (79-100) Mean Corpuscular Hemoglobin 32 pg (25-35) Mean Corpuscular Hemoglobin Concent 33 g/dL (31-37) Red Cell Distribution Width 12.9 % (11.5-14.5) Platelet Count 78 x10^3/uL (140-400) L Neutrophils (%) (Auto) 45 % (31-73) Lymphocytes (%) (Auto) 40 % (24-48) Monocytes (%) (Auto) 12 % (0-9) H Eosinophils (%) (Auto) 2 % (0-3) Basophils (%) (Auto) 0 % (0-3) Neutrophils # (Auto) 1.8 x10^3uL (1.8-7.7) Lymphocytes # (Auto) 1.6 x10^3/uL (1.0-4.8) Monocytes # (Auto) 0.5 x10^3/uL (0.0-1.1) Eosinophils # (Auto) 0.1 x10^3/uL (0.0-0.7) Basophils # (Auto) 0.0 x10^3/uL (0.0-0.2) Current Medications: Meds: Current Medications Medications (Trade) Dose Ordered Sig/Edward Route PRN Reason Start Time Stop Time Status Last Admin Dose Admin Ziprasidone (Geodon) 80 mg BID PO 03/02/19 21:00 03/02/19 19:43 I have reviewed the current psychotropics carefully including drug interactions. Risk benefit ratio favors no change other than as noted in my dictated progress note. 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
[2019-03-03] MEDS: ZIPRASIDONE 80 MG CAPSULE. PO SCH ×2 (07:49→19:28)
[2019-03-03] MEDS: SERTRALINE 50 MG TABLET. PO SCH (07:50)
[2019-03-03] MEDS: medroxyPROGESTERone 5 MG TABLET PO SCH (07:50)
[2019-03-03] MEDS: LACTULOSE 20 GM/30 ML SOLUTION. PO SCH (07:50)
[2019-03-03] MEDS: DIVALPROEX 125 MG CAP.SPRINK PO SCH ×2 (07:50→19:29)
[2019-03-03] MEDS: VITS A & D/LANOLIN TOPICAL OINTMENT 56GM TUBE. TP SCH ×2 (07:54→21:45)
[2019-03-03] MEDS: traZODone 50 MG TABLET. PO SCH ×3 (07:54→15:39)
--- NOTE | 2019-03-03 15:01 | NUR ---
Pt disorganized, oriented to self only. Took meds crushed in pudding. No behaviors to report.
[2019-03-03 15:38] VITALS: BP 121/70
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
[2019-03-03] MEDS: MIRTAZAPINE 7.5 MG TABLET. PO SCH (19:28)
[2019-03-03] MEDS: traZODone 100 MG TABLET. PO SCH (19:28)
--- NOTE | 2019-03-03 20:50 | PDOC ---
Exam Note: German Note: Please also refer to the separate dictated note~for this date of service dictated separately.~Patient seen individually. Discussed the patient with Nursing staff reviewed the chart.~Reviewed interim history and current functioning. Reviewed vital signs,~Labs/ Radiology~and current medications noted below. Continue current treatment with the changes noted in the dictated addendum note Assessment: Vital Signs/I&O: Vital Signs Date Time Temp Pulse Resp B/P (MAP) Pulse Ox O2 Delivery O2 Flow Rate FiO2 03/03/19 15:38 98.0 93 16 121/70 (87) 95 03/02/19 04:16 Room Air I & O 03/02/19 03/02/19 03/03/19 15:00 23:00 07:00 Intake Total 720 ml 480 ml Balance 720 ml 480 ml Current Medications: Meds: Current Medications Medications (Trade) Dose Ordered Sig/Edward Route PRN Reason Start Time Stop Time Status Last Admin Dose Admin Ziprasidone (Geodon) 80 mg BID PO 03/02/19 21:00 03/03/19 19:29 Trazodone HCl (Desyrel) 12.5 mg TID@0900,1300,1700 PO 03/03/19 09:00 03/03/19 15:39 I have reviewed the current psychotropics carefully including drug interactions. Risk benefit ratio favors no change other than as noted in my dictated progress note. 

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
--- NOTE | 2019-03-04 02:45 | PN ---
DATE: 03/02/2019 PSYCHIATRIC PROGRESS NOTE This late entry 03/02/2019 covers elements not covered in my initial note. SUBJECTIVE: I met with the patient in the evening of 03/02/2019. The patient slept 7 hours previous night. Valproic acid level is 60. He remains somewhat impulsive, resistive to medications, threatening nursing staff at times. He wanders up and down the hallway and I followed along with him. He is rambling and mumbling under his breath, somewhat abrasive making vague threats as I walked with him. REVIEW OF SYSTEMS: No CV, , pulmonary, eye, ENT system symptoms on review. Reliability poor. MENTAL STATUS EXAM: Oriented to himself. Insight, judgment, recent and remote memory, attention, concentration, fund of knowledge poor, consistent with his diagnosis. He remains quite psychotic and impulsive, threatening at times. LABORATORY DATA: Reviewed. IMPRESSION: Schizoaffective disorder, bipolar type, mixed with psychotic features, schizophrenia, chronic paranoid with acute exacerbation, major neurocognitive disorder, Alzheimer, vascular with delusion, depression, behavioral disturbance. Rest unchanged including impulse control disorder. PLAN: EKG is unremarkable, we will increase Geodon to 80 mg twice a day. Repeat EKG in 3 days. Maintain Zoloft 50 mg a day, Provera 5 mg a day, Zyprexa p.r.n., trazodone 100 mg at bedtime, Depakote Sprinkles 1000 mg at bedtime, 750 in the morning, and given his marked agitation, threatening behavior, we will also add trazodone 12.5 mg at 9:00 a.m., 1:00 p.m., 5:00 p.m. If he is overly sedated, we may have to reduce this gradually, but hopefully the increase in Geodon would be effective in the meantime. Maintain Remeron 7.5 mg at bedtime. MAN Joyce RENAE MD DR: ROMINA/sung JOB#: [id number] / [id number]
[2019-03-04 06:07] VITALS: BP 140/79
[2019-03-04] MEDS: ZIPRASIDONE 80 MG CAPSULE. PO SCH ×2 (08:06→19:11)
[2019-03-04] MEDS: LACTULOSE 20 GM/30 ML SOLUTION. PO SCH (08:06)
[2019-03-04] MEDS: SERTRALINE 50 MG TABLET. PO SCH (08:06)
[2019-03-04] MEDS: traZODone 50 MG TABLET. PO SCH ×3 (08:07→17:00)
[2019-03-04] MEDS: medroxyPROGESTERone 5 MG TABLET PO SCH (08:07)
[2019-03-04] MEDS: DIVALPROEX 125 MG CAP.SPRINK PO SCH ×2 (08:07→19:12)
[2019-03-04] MEDS: VITS A & D/LANOLIN TOPICAL OINTMENT 56GM TUBE. TP SCH ×2 (08:07→19:40)
--- NOTE | 2019-03-04 09:40 | NUR ---
WEEKLY NOTE: Pt is eating 100% of meals at time requesting seconds, and sleeping roughly 4 hours at night. Pt did threaten staff and attempted to be aggressive during cares; furthermore did have an incident of kicking and swinging at staff. Pt Geodon has been increased, as has his Remeron. Pt will continue on Trazodone 12.5mg. Potentially, pt may be placed on Risperdal. Pt is door checking, and can be difficult to redirect. Pt will plan to return to [facility] in [place] upon discharge. ELOS 10-14 days.
--- NOTE | 2019-03-04 09:41 | NUR ---
WEEKLY ACTIVITY THERAPY NOTE Date of Admission: 02/27/2019 Date of AT Assessment: 03/02/2019 Goal aimed: to increase sensory stimulation/ engagement. Initial Goal: Pt. will participate in at least one individual activity before discharge. Weekly progress towards goal: on track Group participation level: zero Weekly highlights: assessed Pt Behaviors observed: sleeping often, wandering, sleeping in vacant rooms, combative Plan: no change to goal Beneficial adaptations: TBD
[2019-03-04 16:04] VITALS: BP 141/84
[2019-03-04] MEDS: traZODone 100 MG TABLET. PO SCH (19:14)
[2019-03-04] MEDS: MIRTAZAPINE 15 MG TABLET PO SCH (19:31)
--- NOTE | 2019-03-04 22:21 | PDOC ---
Exam Note: German Note: Please also refer to the separate dictated note~for this date of service dictated separately.~Patient seen individually. Discussed the patient with Nursing staff reviewed the chart.~Reviewed interim history and current functioning. Reviewed vital signs,~Labs/ Radiology~and current medications noted below. Continue current treatment with the changes noted in the dictated addendum note Assessment: Vital Signs/I&O: Vital Signs Date Time Temp Pulse Resp B/P (MAP) Pulse Ox O2 Delivery O2 Flow Rate FiO2 03/04/19 16:04 97.3 91 20 141/84 (103) 98 03/04/19 06:07 Room Air I & O 03/03/19 03/03/19 03/04/19 15:00 23:00 07:00 Intake Total 240 ml 0 ml 120 ml Balance 240 ml 0 ml 120 ml Current Medications: Meds: Current Medications Medications (Trade) Dose Ordered Sig/Edward Route PRN Reason Start Time Stop Time Status Last Admin Dose Admin Mirtazapine (Remeron) 15 mg QHS PO 03/04/19 21:00 03/04/19 19:31 I have reviewed the current psychotropics carefully including drug interactions. Risk benefit ratio favors no change other than as noted in my dictated progress note. 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
--- NOTE | 2019-03-04 23:42 | NUR ---
Nursing Note The patient was located in the day room for his medication and assessment. The patient was very difficult during medication pass and required medication to be given in food. The patient refused his snack several times but did eventually take it. The patient was very disorganized and wandered the unit. The patient was compliant in the shower. The patient is currently sleeping in his room.
[2019-03-05 06:09] VITALS: BP 143/88
[2019-03-05] MEDS: DIVALPROEX 125 MG CAP.SPRINK PO SCH ×2 (07:29→19:24)
[2019-03-05] MEDS: LACTULOSE 20 GM/30 ML SOLUTION. PO SCH (07:29)
[2019-03-05] MEDS: medroxyPROGESTERone 5 MG TABLET PO SCH (07:29)
[2019-03-05] MEDS: traZODone 50 MG TABLET. PO SCH ×3 (07:29→17:28)
[2019-03-05] MEDS: SERTRALINE 50 MG TABLET. PO SCH (07:29)
[2019-03-05] MEDS: ZIPRASIDONE 80 MG CAPSULE. PO SCH ×2 (07:29→19:24)
[2019-03-05] MEDS: VITS A & D/LANOLIN TOPICAL OINTMENT 56GM TUBE. TP SCH ×2 (07:30→19:25)
[2019-03-05 15:53] VITALS: BP 108/64
--- NOTE | 2019-03-05 16:27 | NUR ---
pt has been up for meals. wandering and restless at times. directable with encouragement. Meds taken in boost in am and afternoon.
[2019-03-05] MEDS: traZODone 100 MG TABLET. PO SCH (19:24)
[2019-03-05] MEDS: MIRTAZAPINE 15 MG TABLET PO SCH (19:24)
--- NOTE | 2019-03-05 21:08 | PN ---
DATE: 03/03/2019 PSYCHIATRIC PROGRESS NOTE This late entry 03/03/2019 covers elements not covered in my initial note. SUBJECTIVE: I met with the patient in the evening of 03/03/2019. The patient slept 4-1/4 hours previous night. He has done better intermittently per nursing staff, but remains paranoid. He is compliant with his medications, not overly sedated with the trazodone 12.5 mg 3 times a day that was added the day before. REVIEW OF SYSTEMS: No CV, , pulmonary, eye, ENT system symptoms on review. Reliability poor. MENTAL STATUS EXAM: Oriented to himself. Insight, judgment, recent and remote memory, attention, concentration, fund of knowledge poor, consistent with his diagnosis mentioned in my initial note. PLAN: No change from initial note, but we may gradually further increase the Geodon as noted since a valproic acid level is therapeutic at 60. VAIBHAV RENAE MD DR: ROMINA/sung JOB#: [id number] / [id number]
--- NOTE | 2019-03-05 22:09 | PDOC ---
Exam Note: German Note: Please also refer to the separate dictated note~for this date of service dictated separately.~Patient seen individually. Discussed the patient with Nursing staff reviewed the chart.~Reviewed interim history and current functioning. Reviewed vital signs,~Labs/ Radiology~and current medications noted below. Continue current treatment with the changes noted in the dictated addendum note Assessment: Vital Signs/I&O: Vital Signs Date Time Temp Pulse Resp B/P (MAP) Pulse Ox O2 Delivery O2 Flow Rate FiO2 03/05/19 15:53 98.4 87 18 108/64 (79) 96 Room Air I & O 03/04/19 03/04/19 03/05/19 14:59 22:59 06:59 Intake Total 240 ml 480 ml Balance 240 ml 480 ml Current Medications: I have reviewed the current psychotropics carefully including drug interactions. Risk benefit ratio favors no change other than as noted in my dictated progress note. 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
--- NOTE | 2019-03-05 22:45 | NUR ---
Nursing Note The patient was located in the day room for his assessment and medication pass. The patient took his medication crushed in a chocolate shake and was calm and cooperative during interactions with this nurse and peers. The patient is currently sleeping in his room.
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
[2019-03-06 06:23] VITALS: BP 118/74
[2019-03-06] MEDS: SERTRALINE 50 MG TABLET. PO SCH (08:20)
[2019-03-06] MEDS: DIVALPROEX 125 MG CAP.SPRINK PO SCH ×2 (08:20→19:12)
[2019-03-06] MEDS: ZIPRASIDONE 80 MG CAPSULE. PO SCH ×2 (08:22→19:12)
[2019-03-06] MEDS: medroxyPROGESTERone 5 MG TABLET PO SCH (08:22)
[2019-03-06] MEDS: traZODone 50 MG TABLET. PO SCH ×3 (08:23→16:52)
[2019-03-06] MEDS: LACTULOSE 20 GM/30 ML SOLUTION. PO SCH (08:23)
[2019-03-06] MEDS: VITS A & D/LANOLIN TOPICAL OINTMENT 56GM TUBE. TP SCH ×2 (09:00→21:00)
--- NOTE | 2019-03-06 10:14 | NUR ---
Meds taken after 3 attempts, was ambulating in hallways after breakfast. Speech comprehendable, but unrelated to conversation. Delusion of needing to get money to pay for "her" breakfast. Unclear who he was referring to as he walked beside me with no other person present. Later in day room, started dancing in the center of the room, when I commented to him, he began sparring in boxing gesture, coming closer and closer to me. Another male staff intervened and redirected him verbally, then pt. smiled and laughed and said "Awe I was just messin with ya". However angry scowl was very convincing as he approached me boxing. Mood labile. No combativeness noted.
[2019-03-06 16:27] VITALS: BP 110/83
[2019-03-06] MEDS: MIRTAZAPINE 15 MG TABLET PO SCH (19:12)
[2019-03-06] MEDS: traZODone 100 MG TABLET. PO SCH (19:13)
--- NOTE | 2019-03-06 22:44 | NUR ---
Nursing Note The patient was compliant with his medication and assessment and was located in the day room and hallway wandering the unit. The patient is currently sleeping in his room.
--- NOTE | 2019-03-06 23:05 | PDOC ---
Exam Note: German Note: Please also refer to the separate dictated note~for this date of service dictated separately.~Patient seen individually. Discussed the patient with Nursing staff reviewed the chart.~Reviewed interim history and current functioning. Reviewed vital signs,~Labs/ Radiology~and current medications noted below. Continue current treatment with the changes noted in the dictated addendum note Assessment: Vital Signs/I&O: Vital Signs Date Time Temp Pulse Resp B/P (MAP) Pulse Ox O2 Delivery O2 Flow Rate FiO2 03/06/19 16:27 98.8 78 16 110/83 (92) 98 03/06/19 06:23 Room Air I & O 03/05/19 03/05/19 03/06/19 15:00 23:00 07:00 Intake Total 480 ml 480 ml Balance 480 ml 480 ml Current Medications: I have reviewed the current psychotropics carefully including drug interactions. Risk benefit ratio favors no change other than as noted in my dictated progress note. Diagnosis: Problems: (1) Mental status change resolved (2) Paranoid schizophrenia (3) Anxiety disorder (4) Impulse control disorder (5) Schizoaffective disorder, bipolar type (6) Schizophrenia, paranoid, chronic with acute exacerbation (7) Mixed Alzheimer's and vascular dementia with behavior disturbances VAIBHAV RENAE MD Mar 06, 2019 23:05
[2019-03-07] MEDS: traZODone 100 MG TABLET. PO PRN ×2 (02:22→23:25)
[2019-03-07 05:52] VITALS: BP 130/74
[2019-03-07] MEDS: VITS A & D/LANOLIN TOPICAL OINTMENT 56GM TUBE. TP SCH ×2 (07:29→21:00)
[2019-03-07] MEDS: ZIPRASIDONE 80 MG CAPSULE. PO SCH ×2 (07:29→19:39)
[2019-03-07] MEDS: medroxyPROGESTERone 5 MG TABLET PO SCH (07:30)
[2019-03-07] MEDS: SERTRALINE 50 MG TABLET. PO SCH (07:30)
[2019-03-07] MEDS: DIVALPROEX 125 MG CAP.SPRINK PO SCH ×2 (07:30→19:39)
[2019-03-07] MEDS: LACTULOSE 20 GM/30 ML SOLUTION. PO SCH (07:30)
[2019-03-07] MEDS: traZODone 50 MG TABLET. PO SCH ×3 (07:30→17:11)
--- NOTE | 2019-03-07 10:40 | NUR ---
This a.m. has been incontinent of urine, frequent brief changes needed, compliant with meds during breakfast. Speech is garbled, wandering, no agression observed.
[2019-03-07 16:21] VITALS: BP 115/76
--- NOTE | 2019-03-07 18:03 | NUR ---
Napped in afternoon, needed much redirection to change brief, but non combative.
[2019-03-07] MEDS: traZODone 100 MG TABLET. PO SCH (19:39)
[2019-03-07] MEDS: MIRTAZAPINE 15 MG TABLET PO SCH (19:39)
--- NOTE | 2019-03-07 21:52 | NUR ---
Nursing Note Pt seems to still be significantly psychotic. Responding to external stimuli in the day room. Looks around like he is seeing things and hearing things. He is anxious and fidgets in his chair. Took most of his HS meds in pudding, but became suspicious saying "This is terrible" and he normally speaks in a word salad with no discernible pattern at all, so this was surprising. He is also quite guarded in his personal space not wanting to be assessed this PM. He wanders through the day room and [facility] way at times. Dr. Villalpando stated that he wants to give him a few more days then possibly change him to Risperdal, and if that is ineffective, then he may trial Clozaril. He would like to ascertain just what antipsychotics have been given in the past, will pass on to obtain records from previous care providers.
--- NOTE | 2019-03-07 22:16 | PN ---
DATE: 03/05/2019 PSYCHIATRIC PROGRESS NOTE This late entry 03/05/2019 covers elements not covered in my initial note. SUBJECTIVE: I met with the patient in the evening of 03/05/2019. The patient slept 6-1/4 hours previous night. Per nursing report, he had a good day. QT corrected interval on the EKG is 403. He slept through breakfast, takes his meds in Boost. Geodon is being increased to 80 mg twice a day with food on Friday03/07/2019. REVIEW OF SYSTEMS: No CV, , pulmonary, eye, ENT system symptoms on review. Reliability is poor. MENTAL STATUS EXAM: Oriented to himself. Insight, judgment, recent and remote memory, attention, concentration, fund of knowledge poor, consistent with his diagnosis. He remains quite psychotic and even as I sat with him, he was actively talking, responding to external stimuli, but not threatening like he was on the day previously. LABORATORY DATA: Reviewed. IMPRESSION: Unchanged from initial note. PLAN: Continue current psychotropics, but if the psychotic symptoms persist, we may need to change the Geodon to Risperdal. We will have to get past psychotropic medication list. Alternatively, may have to consider Clozaril. Valproic acid level is therapeutic at 60. VAIBHAV RENAE MD DR: ROMINA/sung JOB#: [id number] / [id number]
--- NOTE | 2019-03-07 22:24 | PDOC ---
Exam Note: German Note: Please also refer to the separate dictated note~for this date of service dictated separately.~Patient seen individually. Discussed the patient with Nursing staff reviewed the chart.~Reviewed interim history and current functioning. Reviewed vital signs,~Labs/ Radiology~and current medications noted below. Continue current treatment with the changes noted in the dictated addendum note Assessment: Vital Signs/I&O: Vital Signs Date Time Temp Pulse Resp B/P (MAP) Pulse Ox O2 Delivery O2 Flow Rate FiO2 03/07/19 16:21 97.2 68 16 115/76 (89) 95 03/07/19 05:52 Room Air I & O 03/06/19 03/06/19 03/07/19 15:00 23:00 07:00 Intake Total 720 ml 240 ml Balance 720 ml 240 ml Current Medications: I have reviewed the current psychotropics carefully including drug interactions. Risk benefit ratio favors no change other than as noted in my dictated progress note. 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
[2019-03-08] MEDS: LACTULOSE 20 GM/30 ML SOLUTION. PO SCH (07:46)
[2019-03-08] MEDS: traZODone 50 MG TABLET. PO SCH ×4 (07:46→17:03)
[2019-03-08] MEDS: medroxyPROGESTERone 5 MG TABLET PO SCH (07:49)
[2019-03-08] MEDS: SERTRALINE 50 MG TABLET. PO SCH (07:50)
[2019-03-08] MEDS: ZIPRASIDONE 80 MG CAPSULE. PO SCH ×2 (07:50→19:48)
[2019-03-08] MEDS: DIVALPROEX 125 MG CAP.SPRINK PO SCH ×2 (07:50→19:48)
[2019-03-08] MEDS: VITS A & D/LANOLIN TOPICAL OINTMENT 56GM TUBE. TP SCH ×2 (07:51→19:49)
--- NOTE | 2019-03-08 10:05 | EKG ---
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
[2019-03-08 16:03] VITALS: BP 114/57
--- NOTE | 2019-03-08 18:27 | NUR ---
Nursing Note: Pt calm, drowsy, compliant w/ meds hidden in boost. Ambulated on the unit, napped after breakfast. Cooperative w/ cares. No behaviors this shift.
[2019-03-08] MEDS: MIRTAZAPINE 15 MG TABLET PO SCH (19:48)
[2019-03-08] MEDS: traZODone 100 MG TABLET. PO SCH (19:48)
--- NOTE | 2019-03-08 22:21 | PN ---
DATE: 03/06/2019 PSYCHIATRIC PROGRESS NOTE This late entry 03/06/2019 covers elements not covered in my initial note. SUBJECTIVE: I met with the patient in the evening of 03/06/2019. The patient slept 6-3/4 hours previous night. He has not been aggressive, though he continues to be psychotic, talking to himself and others around him and there is no one there. He has been dancing in the day room, was making boxing mannerism toward the nursing staff, threatening, though he stated he was joking. This did not quite come across that way initially at least. REVIEW OF SYSTEMS: No CV, , pulmonary, eye, ENT system symptoms on review. Reliability poor. MENTAL STATUS EXAM: Oriented to himself. Insight, judgment, recent and remote memory, attention, concentration, fund of knowledge poor, consistent with his diagnosis mentioned in my initial note. PLAN: No change from initial note. MAN Joyce RENAE MD DR: ROMINA/sung JOB#: [id number] / [id number]
--- NOTE | 2019-03-08 22:45 | PN ---
DATE: 03/07/2019 PSYCHIATRIC PROGRESS NOTE This late entry 03/07/2019 covers elements not covered in my initial note. SUBJECTIVE: I met with the patient in the evening of 03/07/2019. The patient slept 4-3/4 hours previous night. The patient is intermittently hallucinating, remains psychotic, but less agitated since the Geodon was increased. REVIEW OF SYSTEMS: No CV, , pulmonary, eye, ENT system symptoms on review. Reliability poor. MENTAL STATUS EXAM: Oriented to himself. Insight, judgment, recent and remote memory, attention, concentration, fund of knowledge poor, consistent with his diagnosis. As I met with him, he was rapidly talking to no one around him. LABORATORY DATA: Reviewed. IMPRESSION: Unchanged from initial note. PLAN: No change from initial note. If the patient fails the increased Geodon, may change to Risperdal or Clozaril. Continue rest unchanged. MAN Joyce RENAE MD DR: ROMINA/sung JOB#: [id number] / [id number]
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
[2019-03-09 05:38] VITALS: BP 123/87
[2019-03-09] MEDS: DIVALPROEX 125 MG CAP.SPRINK PO SCH ×2 (07:14→19:36)
[2019-03-09] MEDS: medroxyPROGESTERone 5 MG TABLET PO SCH (07:14)
[2019-03-09] MEDS: SERTRALINE 50 MG TABLET. PO SCH (07:16)
[2019-03-09] MEDS: traZODone 50 MG TABLET. PO SCH ×3 (07:16→16:10)
[2019-03-09] MEDS: ZIPRASIDONE 80 MG CAPSULE. PO SCH (07:16)
[2019-03-09] MEDS: LACTULOSE 20 GM/30 ML SOLUTION. PO SCH (07:16)
[2019-03-09] MEDS: VITS A & D/LANOLIN TOPICAL OINTMENT 56GM TUBE. TP SCH ×2 (07:24→19:38)
--- NOTE | 2019-03-09 08:46 | PDOC ---
Exam Note: German Note: Late entry for DOS 03/08/2019. Please also refer to the separate dictated note~for this date of service dictated separately.~Patient seen individually. Discussed the patient with Nursing staff reviewed the chart.~Reviewed interim history and current functioning. Reviewed vital signs,~Labs/ Radiology~and current medications noted below. Continue current treatment with the changes noted in the dictated addendum note Assessment: Vital Signs/I&O: Vital Signs Date Time Temp Pulse Resp B/P (MAP) Pulse Ox O2 Delivery O2 Flow Rate FiO2 03/09/19 05:38 97.1 77 18 123/87 (99) 100 Room Air I & O 03/08/19 03/08/19 03/09/19 14:59 22:59 06:59 Intake Total 360 ml 240 ml 120 ml Balance 360 ml 240 ml 120 ml Current Medications: I have reviewed the current psychotropics carefully including drug interactions. Risk benefit ratio favors no change other than as noted in my dictated progress note. 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
[2019-03-09 10:30] LABS: ALBUMIN/GLOBULIN RATIO 1.1 (1.0-1.7); CALCIUM 9.7 mg/dL (8.5-10.1); CREATININE 1.4 mg/dL (0.7-1.3); GFR 60.8; POTASSIUM 4.5 mmol/L (3.5-5.1); TOTAL BILIRUBIN 0.6 mg/dL (0.2-1.0); TOTAL PROTEIN 7.6 g/dL (6.4-8.2)
--- NOTE | 2019-03-09 11:43 | NUR ---
Nursing Note: Pt in day room at shift change. Staff reported pt became agitated and was intrusive; pt was escorted to [facility]. Morning meds given crushed hidden in boost; pt calm during breakfast, napped in [place]well after breakfast. Pt was for the most part compliant w/ tree tapping laborer during blood draw; however, when it required a second stick pt became restless. Pt currently dozing near [facility].
[2019-03-09 15:37] VITALS: BP 109/82
--- NOTE | 2019-03-09 18:20 | NUR ---
Nursing Note: Pt's medication was changed. Geodon 80mg QHS was stopped and pt to start on Risperdal 2mg QHS to be started. EKG to be performed tomorrow 1030 to monitor QT prolong.
[2019-03-09] MEDS: MIRTAZAPINE 15 MG TABLET PO SCH (19:35)
[2019-03-09] MEDS: traZODone 100 MG TABLET. PO SCH (19:35)
[2019-03-09] MEDS ORDERED: risperiDONE 2 MG TABLET. PO SCH (21:00)
--- NOTE | 2019-03-09 22:20 | PDOC ---
Exam Note: German Note: Please also refer to the separate dictated note~for this date of service dictated separately.~Patient seen individually. Discussed the patient with Nursing staff reviewed the chart.~Reviewed interim history and current functioning. Reviewed vital signs,~Labs/ Radiology~and current medications noted below. Continue current treatment with the changes noted in the dictated addendum note Assessment: Vital Signs/I&O: Vital Signs Date Time Temp Pulse Resp B/P (MAP) Pulse Ox O2 Delivery O2 Flow Rate FiO2 03/09/19 15:37 97.8 63 20 109/82 (91) 94 Room Air I & O 03/08/19 03/08/19 03/09/19 15:00 23:00 07:00 Intake Total 360 ml 240 ml 120 ml Balance 360 ml 240 ml 120 ml Labs: Laboratory Tests Test 03/09/19 09:52 Sodium Level 141 mmol/L (136-145) Potassium Level 4.5 mmol/L (3.5-5.1) Chloride Level 104 mmol/L (98-107) Carbon Dioxide Level 29 mmol/L (21-32) Anion Gap 8 (6-14) Blood Urea Nitrogen 23 mg/dL (8-26) Creatinine 1.4 mg/dL (0.7-1.3) H Estimated GFR (Cockcroft-Gault) 60.8 BUN/Creatinine Ratio 16 (6-20) Glucose Level 165 mg/dL (70-99) H Calcium Level 9.7 mg/dL (8.5-10.1) Total Bilirubin 0.6 mg/dL (0.2-1.0) Aspartate Amino Transferase (AST) 16 U/L (15-37) Alanine Aminotransferase (ALT) 18 U/L (16-63) Alkaline Phosphatase 77 U/L (46-116) Total Protein 7.6 g/dL (6.4-8.2) Albumin 4.0 g/dL (3.4-5.0) Albumin/Globulin Ratio 1.1 (1.0-1.7) Current Medications: Meds: Current Medications Medications (Trade) Dose Ordered Sig/Edward Route PRN Reason Start Time Stop Time Status Last Admin Dose Admin Risperidone (RisperDAL) 2 mg QHS PO 03/09/19 21:00 03/09/19 19:38 I have reviewed the current psychotropics carefully including drug interactions. Risk benefit ratio favors no change other than as noted in my dictated progress note. Diagnosis: Problems: (1) Paranoid schizophrenia (2) Anxiety disorder (3) Impulse control disorder (4) Schizoaffective disorder, bipolar type (5) Schizophrenia, paranoid, chronic with acute exacerbation (6) Mixed Alzheimer's and vascular dementia with behavior disturbances VAIBHAV RENAE MD Mar 09, 2019 22:20
[2019-03-09] MEDS: traZODone 100 MG TABLET. PO PRN (22:47)
--- NOTE | 2019-03-09 23:40 | PN ---
DATE: 03/08/2019 PSYCHIATRIC PROGRESS NOTE This late entry 03/08/2019 covers elements not covered in my initial note. SUBJECTIVE: I met with the patient evening of 03/08/2019. The patient slept just 2 hours previous night. This morning, he sat in the chair as he did at night and was making vague statements of "kill white people with a gun." He urinated in the hallway during the day and even though he slept just 2 hours at night, he slept in in the morning, making up for some of this sleep disturbance. REVIEW OF SYSTEMS: No CV, , pulmonary, eye, ENT system symptoms on review. Reliability poor. MENTAL STATUS EXAM: Oriented to himself. Insight, judgment, recent and remote memory, attention, concentration, fund of knowledge poor, consistent with his diagnosis. IMPRESSION: Schizophrenia, chronic; paranoid with acute exacerbation; major neurocognitive disorder; Alzheimer, vascular with delusion; depression; behavioral disturbance; impulse control disorder; anxiety disorder, unspecified. PLAN: Continue current psychotropics, Depakote, Geodon and he remains on Provera, trazodone, Remeron. If psychotic symptoms persist and do not respond adequately to his current Geodon 80 mg twice a day, we may change this to Risperdal or Clozaril. We will decide in the next 24-48 hours. VAIBHAV RENAE MD DR: ROMINA/sung JOB#: [id number] / [id number]
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
[2019-03-10 06:21] VITALS: BP 118/76
[2019-03-10 07:34] LABS: BASO % 0 % (0-3); EOS # 0.1 x10^3/uL (0.0-0.7); EOS % 1 % (0-3); HEMATOCRIT 38.3 % (39.0-53.0); HEMOGLOBIN 12.9 g/dL (13.0-17.5); LYMPH # 1.9 x10^3/uL (1.0-4.8); LYMPH % 32 % (24-48); MEAN CORPUSCULAR HEMOGLOBIN 32 pg (25-35); MEAN CORPUSCULAR HGB CONC 34 g/dL (31-37); MEAN CORPUSCULAR VOLUME 95 fL (79-100); MONO # 0.6 x10^3/uL (0.0-1.1); MONO % 11 % (0-9); NEUT # 3.2 x10^3uL (1.8-7.7); NEUT % 56 % (31-73); PLATELET COUNT 79 x10^3/uL (140-400); RED BLOOD COUNT 4.05 x10^6/uL (4.30-5.70); RED CELL DISTRIBUTION WIDTH 12.5 % (11.5-14.5); WHITE BLOOD COUNT 5.8 x10^3/uL (4.0-11.0)
[2019-03-10] MEDS: VITS A & D/LANOLIN TOPICAL OINTMENT 56GM TUBE. TP SCH ×3 (08:03→19:17)
[2019-03-10] MEDS: traZODone 50 MG TABLET. PO SCH ×3 (08:03→17:31)
[2019-03-10] MEDS: SERTRALINE 50 MG TABLET. PO SCH (08:03)
[2019-03-10] MEDS: DIVALPROEX 125 MG CAP.SPRINK PO SCH ×2 (08:03→19:16)
[2019-03-10] MEDS: medroxyPROGESTERone 5 MG TABLET PO SCH (08:03)
[2019-03-10] MEDS: LACTULOSE 20 GM/30 ML SOLUTION. PO SCH (08:03)
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
--- NOTE | 2019-03-10 13:46 | NUR ---
Nurse sat with patient while he ate breakfast. He was speaking to someone that wasn't there, looking to his right and talking about ".45's and Hoes", some of the things he said couldn't be made out. Patient was cooperative with EKG for medication changes that Dr. Villalpando had ordered. He was later observed sleeping in the day room and then found sleeping in a peers bed. Patient did not attend lunch although he was woken up twice for it. Patient has urinated on the floor several times today, despite being shown where the bathroom is. Patient up ad georges with a steady gait, he is oriented only to himself.
--- NOTE | 2019-03-10 13:48 | NUR ---
KWASI attempted to contact pt KWASI Turner and left a message asking her to contact KWASI when possible re: updates on pt. KWASI will try to contact Yue again at a later time.
--- NOTE | 2019-03-10 13:52 | NUR ---
SW attempted to contact pt dtr Rose and had to leave a message asking for a returned phone when possible.
--- NOTE | 2019-03-10 14:27 | NUR ---
Dr. Soni aware of patients CBC results. RBC, HCT, HGB and Platelets have been trending down but are now trending back up, platelets are 79 at this time. No orders received.
--- NOTE | 2019-03-10 15:44 | EKG ---
[address] [address] Test Date: 2019-03-10 Test Time: 10:06:33 Pat Name: ZENON HAM Department: Room: [address] [place] [address] Gender: M Practice Representative: GUALBERTO : 1950 Requested By: VAIBHAV RENAE Order Number: [id number] Reading MD: Hiren Hernandez MD Measurements Intervals Lake Rate: 102 P: -2 AK: 160 QRS: 6 QRSD: 68 T: 73 QT: 324 QTc: 426 Interpretive Statements SINUS TACHYCARDIA Electronically Signed On 03-18-2019 16:48:52 CDT by Hiren Hernandez MD
[2019-03-10 15:45] VITALS: BP 116/83
[2019-03-10] MEDS: traZODone 100 MG TABLET. PO SCH (19:16)
[2019-03-10] MEDS: MIRTAZAPINE 15 MG TABLET PO SCH (19:16)
[2019-03-10] MEDS: risperiDONE 2 MG TABLET. PO SCH (19:31)
[2019-03-10] MEDS: hydrOXYzine HCL 25 MG TABLET PO SCH (19:31)
[2019-03-10] MEDS ORDERED: hydrOXYzine HCL 25 MG TABLET PO PRN (21:30)
[2019-03-10] MEDS: traZODone 100 MG TABLET. PO PRN (21:44)
--- NOTE | 2019-03-10 21:52 | PDOC ---
Exam Note: German Note: Please also refer to the separate dictated note~for this date of service dictated separately.~Patient seen individually. Discussed the patient with Nursing staff reviewed the chart.~Reviewed interim history and current functioning. Reviewed vital signs,~Labs/ Radiology~and current medications noted below. Continue current treatment with the changes noted in the dictated addendum note Assessment: Vital Signs/I&O: Vital Signs Date Time Temp Pulse Resp B/P (MAP) Pulse Ox O2 Delivery O2 Flow Rate FiO2 03/10/19 15:45 97.8 94 18 116/83 (94) 100 03/09/19 15:37 Room Air I & O 03/09/19 03/09/19 03/10/19 14:59 22:59 06:59 Intake Total 480 ml 240 ml 120 ml Balance 480 ml 240 ml 120 ml Labs: Laboratory Tests Test 03/10/19 07:13 White Blood Count 5.8 x10^3/uL (4.0-11.0) Red Blood Count 4.05 x10^6/uL (4.30-5.70) L Hemoglobin 12.9 g/dL (13.0-17.5) L Hematocrit 38.3 % (39.0-53.0) L Mean Corpuscular Volume 95 fL (79-100) Mean Corpuscular Hemoglobin 32 pg (25-35) Mean Corpuscular Hemoglobin Concent 34 g/dL (31-37) Red Cell Distribution Width 12.5 % (11.5-14.5) Platelet Count 79 x10^3/uL (140-400) L Neutrophils (%) (Auto) 56 % (31-73) Lymphocytes (%) (Auto) 32 % (24-48) Monocytes (%) (Auto) 11 % (0-9) H Eosinophils (%) (Auto) 1 % (0-3) Basophils (%) (Auto) 0 % (0-3) Neutrophils # (Auto) 3.2 x10^3uL (1.8-7.7) Lymphocytes # (Auto) 1.9 x10^3/uL (1.0-4.8) Monocytes # (Auto) 0.6 x10^3/uL (0.0-1.1) Eosinophils # (Auto) 0.1 x10^3/uL (0.0-0.7) Basophils # (Auto) 0.0 x10^3/uL (0.0-0.2) Current Medications: Meds: Current Medications Medications (Trade) Dose Ordered Sig/Edward Route PRN Reason Start Time Stop Time Status Last Admin Dose Admin Hydroxyzine HCl (Atarax) 50 mg HS PO 03/10/19 21:00 03/10/19 19:32 Risperidone (RisperDAL) 3 mg QHS PO 03/10/19 21:00 03/10/19 19:32 I have reviewed the current psychotropics carefully including drug interactions. Risk benefit ratio favors no change other than as noted in my dictated progress note. Diagnosis: Problems: (1) Paranoid schizophrenia (2) Anxiety disorder (3) Impulse control disorder (4) Schizoaffective disorder, bipolar type (5) Schizophrenia, paranoid, chronic with acute exacerbation (6) Mixed Alzheimer's and vascular dementia with behavior disturbances VAIBHAV RENAE MD Mar 10, 2019 21:52
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
--- NOTE | 2019-03-11 01:25 | NUR ---
Nursing Note The patient was located in the day room/hallway for the majority of the shift. The patient was very disorganized and easily irritable. The patient had many instances of aggression toward staff but was redirectable. The patient was given PRN Trazodone and Zyprexa @ HS R/T restlessness and agitation. The patient is currently laying in the quiet room.
[2019-03-11 06:04] VITALS: BP 115/71
--- NOTE | 2019-03-11 09:58 | NUR ---
WEEKLY ACTIVITY THERAPY NOTE Date of Admission: 02/27/2019 Date of AT Assessment: 03/02/2019 Goal aimed: to increase sensory stimulation/ engagement. Initial Goal: Pt. will participate in at least one individual activity before discharge. Weekly progress towards goal: on track Group participation level: zero Weekly highlights: ELECTRICAL DESIGN ENGINEER hand over hand support to help Pt. with snack on Friday, Pt. received assistance well Behaviors observed: sleeping, wandering Plan: no change to goal Beneficial adaptations: gentle explanations with care, hand over hand assistance
--- NOTE | 2019-03-11 12:06 | NUR ---
WEEKLY NOTE: Pt is eating 75-100% of meals and sleeping on average 5.5 hours. Pt did sleep poorly last night, as it was noted that he was restless and had attempts of combativeness with staff. Pt wanders the hallway and at times noted with his fists clinched. Pt does talk to himself and at times is seen picking things off the floor that is not there. Pt is actively hallucinating. Risperdal was increased to 3mg q HS and his VPA for Depakote is noted as therapeutic. ELOS is the week after next.
--- NOTE | 2019-03-11 12:31 | NUR ---
Patient just got up, and is in dining room eating lunch. Will provide morning medications crushed and hidden in his chocolate ice cream. He is not in a bad mood, has been quiet since getting up.
[2019-03-11] MEDS: DIVALPROEX 125 MG CAP.SPRINK PO SCH ×2 (13:17→19:42)
[2019-03-11] MEDS: VITS A & D/LANOLIN TOPICAL OINTMENT 56GM TUBE. TP SCH ×2 (13:18→19:42)
[2019-03-11] MEDS: LACTULOSE 20 GM/30 ML SOLUTION. PO SCH (13:18)
[2019-03-11] MEDS: medroxyPROGESTERone 5 MG TABLET PO SCH (13:18)
[2019-03-11] MEDS: traZODone 50 MG TABLET. PO SCH ×3 (13:18→17:08)
[2019-03-11] MEDS: SERTRALINE 50 MG TABLET. PO SCH (13:18)
--- NOTE | 2019-03-11 13:20 | NUR ---
Pt came into SW office and sat down in the chair. Pt conversation is non-whimsical and pt tends to mumble. Pt made comments about buying 2 cars but wanted to sell them. SW mentioned talking to his dtr yesterday in which he stated, "she knows everything". Pt had a full conversation with himself, while SW checked her voice messages. RN came in with ice cream for pt with medications crushed in it; pt ate the whole container and then decided to get up and began walking around the unit.
[2019-03-11 15:44] VITALS: BP 115/80
--- NOTE | 2019-03-11 19:31 | NUR ---
Patient had a good day. Nurse gave him PRN zyprexa 5mg at 1700 as he was getting restless and started door checking at that time. Patient only ate his mashed potatoes at dinner, meds were given hidden in the gravy. This nurse gave him some [employer] cheese bread and grape juice to go with dinner. Patient wandering in hallway, somewhat cooperative with redirection. He spent part of his day sitting in the social work office with Ander. Patient urinated on the floor 2 times this shift.
--- NOTE | 2019-03-11 19:37 | NUR ---
Patient got an additional 6.5 hours of sleep. He slept thru breakfast and got up at 1230.
[2019-03-11] MEDS: hydrOXYzine HCL 25 MG TABLET PO SCH (19:41)
[2019-03-11] MEDS: traZODone 100 MG TABLET. PO SCH (19:41)
[2019-03-11] MEDS: MIRTAZAPINE 15 MG TABLET PO SCH (19:42)
[2019-03-11] MEDS: risperiDONE 2 MG TABLET. PO SCH (19:42)
[2019-03-11 21:06] VITALS: BP 107/77
--- NOTE | 2019-03-11 22:04 | PDOC ---
Exam Note: German Note: Please also refer to the separate dictated note~for this date of service dictated separately.~Patient seen individually. Discussed the patient with Nursing staff reviewed the chart.~Reviewed interim history and current functioning. Reviewed vital signs,~Labs/ Radiology~and current medications noted below. Continue current treatment with the changes noted in the dictated addendum note Assessment: Vital Signs/I&O: Vital Signs Date Time Temp Pulse Resp B/P (MAP) Pulse Ox O2 Delivery O2 Flow Rate FiO2 03/11/19 21:06 20 107/77 (87) 98 03/11/19 15:44 97.9 102 Room Air I & O 03/10/19 03/10/19 03/11/19 14:59 22:59 06:59 Intake Total 360 ml 360 ml 120 ml Balance 360 ml 360 ml 120 ml Current Medications: I have reviewed the current psychotropics carefully including drug interactions. Risk benefit ratio favors no change other than as noted in my dictated progress note. Diagnosis: Problems: (1) Paranoid schizophrenia (2) Anxiety disorder (3) Impulse control disorder (4) Schizoaffective disorder, bipolar type (5) Schizophrenia, paranoid, chronic with acute exacerbation (6) Mixed Alzheimer's and vascular dementia with behavior disturbances VAIBHAV RENAE MD Mar 11, 2019 22:04
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
[2019-03-12] MEDS: traZODone 100 MG TABLET. PO PRN ×2 (01:46→20:35)
[2019-03-12 05:56] VITALS: BP 147/66
--- NOTE | 2019-03-12 11:04 | NUR ---
Patient is still in bed, he has been sleeping each time that nurse checked on him. He did not eat breakfast. At one point he was awake and seemed to be masturbating, as the covers were moving, but his eyes were closed. Nurse has held patients morning medications and will give them to him when he gets up for the day.
[2019-03-12] MEDS: traZODone 50 MG TABLET. PO SCH ×3 (12:23→18:03)
[2019-03-12] MEDS: VITS A & D/LANOLIN TOPICAL OINTMENT 56GM TUBE. TP SCH ×2 (12:23→19:57)
[2019-03-12] MEDS: LACTULOSE 20 GM/30 ML SOLUTION. PO SCH (12:27)
[2019-03-12] MEDS: medroxyPROGESTERone 5 MG TABLET PO SCH (12:27)
[2019-03-12] MEDS: SERTRALINE 50 MG TABLET. PO SCH (12:27)
[2019-03-12] MEDS: DIVALPROEX 125 MG CAP.SPRINK PO SCH ×2 (12:27→19:57)
--- NOTE | 2019-03-12 14:12 | NUR ---
KWASI left a message for pt dtr re: pt ELOS a couple weeks out as the psychiatrist will continue to make medication changes. KWASI left on the message that pt did not have a great day on Friday and is needing to be monitored. KWASI will continue to follow up with pt dtr and the facility with updates and planning for discharge.
--- NOTE | 2019-03-12 14:27 | NUR ---
KWASI left a message for KWASI Turner, at [facility] to contact KWASI re: an update on pt.
[2019-03-12 15:25] VITALS: BP 128/77
--- NOTE | 2019-03-12 17:44 | NUR ---
Patient was compliant with medications. He has been mostly calm and cooperative. He is still talking to unseen people and getting aggravated when peers don't answer him when he speaks to them. This nurse has not given any PRN medications to this point.
--- NOTE | 2019-03-12 18:25 | NUR ---
Spoke with Dr. Villalpando about patients possible paradoxical reaction to hydroxyzine that was reported to this nurse on two separate dates by prior shift. Received order to discontinue to Hydroxyzine r/t this possibility.
[2019-03-12] MEDS: traZODone 100 MG TABLET. PO SCH (19:54)
[2019-03-12] MEDS: risperiDONE 2 MG TABLET. PO SCH (19:56)
[2019-03-12] MEDS: MIRTAZAPINE 15 MG TABLET PO SCH (19:56)
--- NOTE | 2019-03-12 22:07 | PDOC ---
Exam Note: German Note: Please also refer to the separate dictated note~for this date of service dictated separately.~Patient seen individually. Discussed the patient with Nursing staff reviewed the chart.~Reviewed interim history and current functioning. Reviewed vital signs,~Labs/ Radiology~and current medications noted below. Continue current treatment with the changes noted in the dictated addendum note Assessment: Vital Signs/I&O: Vital Signs Date Time Temp Pulse Resp B/P (MAP) Pulse Ox O2 Delivery O2 Flow Rate FiO2 03/12/19 15:25 97.6 108 20 128/77 (94) 96 03/12/19 05:56 Room Air I & O 03/11/19 03/11/19 03/12/19 15:00 23:00 07:00 Intake Total 480 ml 240 ml 420 ml Balance 480 ml 240 ml 420 ml Current Medications: I have reviewed the current psychotropics carefully including drug interactions. Risk benefit ratio favors no change other than as noted in my dictated progress note. Diagnosis: Problems: (1) Paranoid schizophrenia (2) Anxiety disorder (3) Impulse control disorder (4) Schizoaffective disorder, bipolar type (5) Schizophrenia, paranoid, chronic with acute exacerbation (6) Mixed Alzheimer's and vascular dementia with behavior disturbances VAIBHAV RENAE MD Mar 12, 2019 22:07
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
--- NOTE | 2019-03-13 00:02 | NUR ---
Pt walking around day room at shift change. Pt disorganized, talking to someone that is not there and responding back to them. Pt appears to become overstimulated with the large group of patients in the day room this evening and became slightly agitated. Staff placed pt in [facility] for de-escalation and PRN Zydis was administered which was effective. Pt compliant with medications administered crushed in food.
[2019-03-13 05:36] VITALS: BP 114/72
[2019-03-13] MEDS: traZODone 50 MG TABLET. PO SCH ×3 (08:21→16:58)
[2019-03-13] MEDS: medroxyPROGESTERone 5 MG TABLET PO SCH (08:21)
[2019-03-13] MEDS: LACTULOSE 20 GM/30 ML SOLUTION. PO SCH (08:21)
[2019-03-13] MEDS: DIVALPROEX 125 MG CAP.SPRINK PO SCH ×2 (08:21→19:44)
[2019-03-13] MEDS: VITS A & D/LANOLIN TOPICAL OINTMENT 56GM TUBE. TP SCH ×3 (08:22→20:27)
[2019-03-13] MEDS: SERTRALINE 50 MG TABLET. PO SCH (08:22)
--- NOTE | 2019-03-13 11:15 | NUR ---
Pt has slept in this am. No agitation, aggression thus far.
[2019-03-13 15:46] VITALS: BP 95/63
[2019-03-13 19:42] VITALS: BP 125/84
[2019-03-13] MEDS: MIRTAZAPINE 15 MG TABLET PO SCH (19:44)
[2019-03-13] MEDS: traZODone 100 MG TABLET. PO SCH (19:44)
[2019-03-13] MEDS: risperiDONE 2 MG TABLET. PO SCH (19:45)
[2019-03-13] MEDS: traZODone 100 MG TABLET. PO PRN (21:03)
--- NOTE | 2019-03-13 21:57 | PDOC ---
Exam Note: German Note: Please also refer to the separate dictated note~for this date of service dictated separately.~Patient seen individually. Discussed the patient with Nursing staff reviewed the chart.~Reviewed interim history and current functioning. Reviewed vital signs,~Labs/ Radiology~and current medications noted below. Continue current treatment with the changes noted in the dictated addendum note Assessment: Vital Signs/I&O: Vital Signs Date Time Temp Pulse Resp B/P (MAP) Pulse Ox O2 Delivery O2 Flow Rate FiO2 03/13/19 19:42 96.6 114 20 125/84 (98) 96 Room Air I & O 03/12/19 03/12/19 03/13/19 15:00 23:00 07:00 Intake Total 360 ml 480 ml 240 ml Balance 360 ml 480 ml 240 ml Current Medications: I have reviewed the current psychotropics carefully including drug interactions. Risk benefit ratio favors no change other than as noted in my dictated progress note. 

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
[2019-03-14 05:54] VITALS: BP 135/82
[2019-03-14] MEDS: VITS A & D/LANOLIN TOPICAL OINTMENT 56GM TUBE. TP SCH ×2 (08:16→20:42)
[2019-03-14] MEDS: DIVALPROEX 125 MG CAP.SPRINK PO SCH ×2 (08:17→20:40)
[2019-03-14] MEDS: traZODone 50 MG TABLET. PO SCH ×3 (08:17→17:04)
[2019-03-14] MEDS: LACTULOSE 20 GM/30 ML SOLUTION. PO SCH (08:18)
[2019-03-14] MEDS: SERTRALINE 50 MG TABLET. PO SCH (08:18)
[2019-03-14] MEDS: medroxyPROGESTERone 5 MG TABLET PO SCH (08:18)
--- NOTE | 2019-03-14 10:12 | NUR ---
Pt wanders the unit. No agitation, no aggression. Pt is confused, calm, redirectable and compliant with medication and assessment.
[2019-03-14 16:00] VITALS: BP 145/84
[2019-03-14] MEDS: MIRTAZAPINE 15 MG TABLET PO SCH (20:41)
[2019-03-14] MEDS: traZODone 100 MG TABLET. PO SCH (20:41)
[2019-03-14] MEDS: risperiDONE 1 MG TABLET. PO SCH (20:42)
--- NOTE | 2019-03-14 21:01 | PDOC ---
Exam Note: German Note: Please also refer to the separate dictated note~for this date of service dictated separately.~Patient seen individually. Discussed the patient with Nursing staff reviewed the chart.~Reviewed interim history and current functioning. Reviewed vital signs,~Labs/ Radiology~and current medications noted below. Continue current treatment with the changes noted in the dictated addendum note Assessment: Vital Signs/I&O: Vital Signs Date Time Temp Pulse Resp B/P (MAP) Pulse Ox O2 Delivery O2 Flow Rate FiO2 03/14/19 16:00 97.4 88 18 145/84 (104) 97 Room Air I & O 03/13/19 03/13/19 03/14/19 14:59 22:59 06:59 Intake Total 240 ml 360 ml Balance 240 ml 360 ml Current Medications: Meds: Current Medications Medications (Trade) Dose Ordered Sig/Edward Route PRN Reason Start Time Stop Time Status Last Admin Dose Admin Risperidone (RisperDAL) 3.5 mg HS PO 03/14/19 21:00 03/14/19 20:42 I have reviewed the current psychotropics carefully including drug interactions. Risk benefit ratio favors no change other than as noted in my dictated progress note. 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
--- NOTE | 2019-03-14 22:18 | PN ---
DATE: 03/13/2019 This late entry of 03/13/2019, covers elements not covered in my initial note. SUBJECTIVE: I met with the patient in the evening of 03/13/2019. The patient slept 6-1/2 hours previous night with a repeat trazodone. He has been wandering, confused, talking to himself and was actively hallucinating, looking into the corner of the room as I sat with him. He is answering himself irritable at times. REVIEW OF SYSTEMS: No CV, , pulmonary, eye, ENT system symptoms on review. Reliability poor. MENTAL STATUS EXAM: Oriented to himself. Insight, judgment, recent and remote memory, attention, concentration, fund of knowledge poor, consistent with his diagnosis mentioned in my initial note. PLAN: Increase Risperdal from 3 mg at bedtime to 3.5 mg at bedtime. Continue Depakote current dosage, level therapeutic at 60. Maintain Zoloft, Provera, trazodone, Remeron along with scheduled trazodone during the day and hydroxyzine for now. MAN Joyce RENAE MD DR: ROMINA/sung JOB#: [id number] / [id number]
--- NOTE | 2019-03-14 22:22 | PN ---
DATE: 03/12/2019 This late entry of 03/12/2019 covers elements not covered in my initial note. SUBJECTIVE: I met with the patient in the evening of 03/12/2019. The patient slept 4 hours previous night and then 6 hours into the color buffer. He refused his medications. His medications are put in hamburger and he took it partially. He has been extremely agitated, shaking and kicking the doors. He had a fall, was placed in the [facility] to reduce sensory stimuli. Slept 10 in the morning, masturbating in public, talking to himself, but later in the day was little calmer. He took his noon medications, then did better. REVIEW OF SYSTEMS: No CV, , PULMONARY, EYE, ENT system symptoms on review. Reliability poor. MENTAL STATUS EXAM: Oriented to himself. Insight, judgment, recent and remote memory, attention, concentration, fund of knowledge poor, consistent with his diagnosis mentioned in my initial note. PLAN: No change from initial note. We have increased the Risperdal and may need to do this again in due course, currently at 3 mg at bedtime and added hydroxyzine bedtime. Valproic acid level therapeutic at 60, rest unchanged. VAIBHAV RENAE MD DR: ROMINA/sung JOB#: [id number] / [id number]
--- NOTE | 2019-03-14 23:00 | NUR ---
Pt has been wandering and door checking all evening. Compliant with medications crushed and hidden in one bite of pudding. No agitation or combativeness with shower. Repeat Trazodone and Zyprexa administered d/t pt's restlessness and lack of sleeping. Pt continues to wander the unit currently. Will continue to monitor.
[2019-03-14] MEDS: traZODone 100 MG TABLET. PO PRN (23:08)
[2019-03-15 05:42] VITALS: BP 111/78
[2019-03-15] MEDS: medroxyPROGESTERone 5 MG TABLET PO SCH (10:16)
[2019-03-15] MEDS: DIVALPROEX 125 MG CAP.SPRINK PO SCH ×2 (10:16→19:44)
[2019-03-15] MEDS: traZODone 50 MG TABLET. PO SCH ×3 (10:16→17:01)
[2019-03-15] MEDS: SERTRALINE 50 MG TABLET. PO SCH (10:17)
[2019-03-15] MEDS: LACTULOSE 20 GM/30 ML SOLUTION. PO SCH (10:17)
[2019-03-15] MEDS: VITS A & D/LANOLIN TOPICAL OINTMENT 56GM TUBE. TP SCH ×2 (10:18→19:45)
[2019-03-15] MEDS: MIRTAZAPINE 15 MG TABLET PO SCH (19:44)
[2019-03-15] MEDS: traZODone 100 MG TABLET. PO SCH (19:44)
[2019-03-15] MEDS: risperiDONE 1 MG TABLET. PO SCH (19:44)
--- NOTE | 2019-03-15 22:23 | PDOC ---
Exam Note: German Note: Please also refer to the separate dictated note~for this date of service dictated separately.~Patient seen individually. Discussed the patient with Nursing staff reviewed the chart.~Reviewed interim history and current functioning. Reviewed vital signs,~Labs/ Radiology~and current medications noted below. Continue current treatment with the changes noted in the dictated addendum note Assessment: Vital Signs/I&O: Vital Signs Date Time Temp Pulse Resp B/P (MAP) Pulse Ox O2 Delivery O2 Flow Rate FiO2 03/15/19 15:48 97.8 75 20 96 03/15/19 05:42 111/78 (89) 03/14/19 16:00 Room Air I & O 03/14/19 03/14/19 03/15/19 15:00 23:00 07:00 Intake Total 720 ml 360 ml 420 ml Balance 720 ml 360 ml 420 ml Current Medications: I have reviewed the current psychotropics carefully including drug interactions. Risk benefit ratio favors no change other than as noted in my dictated progress note. 

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
[2019-03-15] MEDS: traZODone 100 MG TABLET. PO PRN (23:08)
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
[2019-03-16 06:14] VITALS: BP 127/63
[2019-03-16] MEDS: medroxyPROGESTERone 5 MG TABLET PO SCH (09:38)
[2019-03-16] MEDS: SERTRALINE 50 MG TABLET. PO SCH (09:38)
[2019-03-16] MEDS: LACTULOSE 20 GM/30 ML SOLUTION. PO SCH (09:38)
[2019-03-16] MEDS: VITS A & D/LANOLIN TOPICAL OINTMENT 56GM TUBE. TP SCH ×2 (09:40→19:29)
[2019-03-16] MEDS: traZODone 50 MG TABLET. PO SCH ×4 (09:40→17:11)
[2019-03-16] MEDS: DIVALPROEX 125 MG CAP.SPRINK PO SCH ×2 (09:40→19:29)
--- NOTE | 2019-03-16 11:17 | NUR ---
KWASI sent updated notes for the last week over to KWASI Turner, at [facility]. KWASI will continue to follow up with the facility as pt EMI is in a week and a half.
--- NOTE | 2019-03-16 13:41 | NUR ---
Patient had bowel incontinence in hallway near entrance, got it onto his hands and smeared stool onto the bricks. Staff then put him in a onesie. He is walking in hallway, muttering and talking to himself. He is also clenching fists and appears to be agitated. Patient given PRN zyprexa per order for agitation/psychosis and will continue to monitor.
--- NOTE | 2019-03-16 14:54 | NUR ---
Exit seeking and pulling on door handles this morning. Talking to himself and answering himself, appears to see/hear people that he interacts with. Patient is unable to state what he sees/hears and becomes agitated if you interrupt him when he is talking to himself. Morning meds given crushed and hidden in chocolate ice cream. Lactulose given in grape juice. Patient took 1300 trazodone crushed in one bite of chocolate pudding. Patient is currently in room 229 sitting in the chair looking out the window.
[2019-03-16 16:07] VITALS: BP 132/84
[2019-03-16] MEDS: MIRTAZAPINE 15 MG TABLET PO SCH (19:30)
[2019-03-16] MEDS: risperiDONE 1 MG TABLET. PO SCH (19:30)
[2019-03-16] MEDS: traZODone 100 MG TABLET. PO SCH (19:30)
[2019-03-16] MEDS: traZODone 100 MG TABLET. PO PRN (20:37)
--- NOTE | 2019-03-16 21:08 | PN ---
DATE: 03/15/2019 This late entry 03/15/2019 covers elements not covered in my initial note. SUBJECTIVE: I met with the patient evening of 03/15/2019. The patient slept just 2-1/2 hours previous night. Previous night, he was not combative with showers, but was door checking, exit seeking and stimuli seemed to worsen his agitation, paranoia. He randomly talks about things about "hitting people," but he is not physically attacking anyone. Nursing staff did call me and he received Zyprexa p.r.n. at 12:15 p.m. He did receive trazodone and Zyprexa previous night. Despite this did not sleep well, but then slept 10 in the morning on 03/15/2019 until about 10:00 a.m. making up for some of this. REVIEW OF SYSTEMS: No CV, , pulmonary, eye, ENT system symptoms on review. Reliability poor. MENTAL STATUS EXAM: Oriented to himself. Insight, judgment, recent and remote memory, attention, concentration, fund of knowledge poor, consistent with his diagnosis mentioned in my initial note. LABORATORY DATA: Reviewed. IMPRESSION: Schizophrenia, chronic paranoid with acute exacerbation, major neurocognitive disorder, Alzheimer, vascular with delusion, depression, behavioral disturbance. Rest unchanged from initial note. PLAN: Continue current psychotropics mentioned in my initial note. He is having no masturbating behaviors in the last 24 hours. MAN Joyce RENAE MD DR: ROMINA/usng JOB#: [id number] / [id number]
--- NOTE | 2019-03-16 21:50 | PDOC ---
Exam Note: German Note: Please also refer to the separate dictated note~for this date of service dictated separately.~Patient seen individually. Discussed the patient with Nursing staff reviewed the chart.~Reviewed interim history and current functioning. Reviewed vital signs,~Labs/ Radiology~and current medications noted below. Continue current treatment with the changes noted in the dictated addendum note Assessment: Vital Signs/I&O: Vital Signs Date Time Temp Pulse Resp B/P (MAP) Pulse Ox O2 Delivery O2 Flow Rate FiO2 03/16/19 16:07 97.8 91 18 132/84 (100) 95 03/16/19 06:14 Room Air I & O 03/15/19 03/15/19 03/16/19 15:00 23:00 07:00 Intake Total 60 ml 60 ml 120 ml Balance 60 ml 60 ml 120 ml Current Medications: Meds: Current Medications Medications (Trade) Dose Ordered Sig/Edward Route PRN Reason Start Time Stop Time Status Last Admin Dose Admin Trazodone HCl (Desyrel) 25 mg TID@0900,1300,1700 PO 03/16/19 17:15 03/16/19 17:11 I have reviewed the current psychotropics carefully including drug interactions. Risk benefit ratio favors no change other than as noted in my dictated progress note. 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
--- NOTE | 2019-03-16 23:00 | NUR ---
Pt sitting quietly in the West hallway at shift change. Pt disorganized, confused, delusional, and talking to himself. Pt consumed his HS medications hidden in chocolate ice cream. Pt later agitated when approached by staff for cares/shower. PRN repeat Trazodone and PRN Zydis administered hidden in juice. Pt then layed down on the mattress in the quiet room. Staff able to assist pt with bathing and HS cares prior to escorting him to his room.
[2019-03-17 05:48] VITALS: BP 152/84
[2019-03-17] MEDS: LACTULOSE 20 GM/30 ML SOLUTION. PO SCH (08:43)
[2019-03-17] MEDS: medroxyPROGESTERone 5 MG TABLET PO SCH (08:43)
[2019-03-17] MEDS: DIVALPROEX 125 MG CAP.SPRINK PO SCH ×2 (08:43→20:41)
[2019-03-17] MEDS: traZODone 50 MG TABLET. PO SCH ×4 (08:43→16:40)
[2019-03-17] MEDS: SERTRALINE 50 MG TABLET. PO SCH (08:43)
[2019-03-17 09:42] LABS: BASO % 1 % (0-3); EOS # 0.1 x10^3/uL (0.0-0.7); EOS % 2 % (0-3); HEMATOCRIT 40.2 % (39.0-53.0); HEMOGLOBIN 13.5 g/dL (13.0-17.5); LYMPH # 1.3 x10^3/uL (1.0-4.8); LYMPH % 35 % (24-48); MEAN CORPUSCULAR HEMOGLOBIN 32 pg (25-35); MEAN CORPUSCULAR HGB CONC 34 g/dL (31-37); MEAN CORPUSCULAR VOLUME 95 fL (79-100); MONO # 0.4 x10^3/uL (0.0-1.1); MONO % 11 % (0-9); NEUT # 1.9 x10^3uL (1.8-7.7); NEUT % 52 % (31-73); PLATELET COUNT 77 x10^3/uL (140-400); RED BLOOD COUNT 4.25 x10^6/uL (4.30-5.70); RED CELL DISTRIBUTION WIDTH 12.4 % (11.5-14.5); WHITE BLOOD COUNT 3.7 x10^3/uL (4.0-11.0)
[2019-03-17 09:57] LABS: ALBUMIN 3.7 g/dL (3.4-5.0); CALCIUM 9.3 mg/dL (8.5-10.1); CREATININE 1.2 mg/dL (0.7-1.3); GFR 72.6; MAGNESIUM 2.3 mg/dL (1.8-2.4); POTASSIUM 4.3 mmol/L (3.5-5.1); TOTAL BILIRUBIN 0.7 mg/dL (0.2-1.0); TOTAL PROTEIN 7.5 g/dL (6.4-8.2)
--- NOTE | 2019-03-17 10:00 | NUR ---
Patient was being toileted by staff x2 when he became very resistive and then combative. Staff x5 required to change him. Patient is now in [facility], sitting in chair and appears to be sleeping. Patient wearing onesie to prevent him from urinating on the floor in random places.
[2019-03-17] MEDS: VITS A & D/LANOLIN TOPICAL OINTMENT 56GM TUBE. TP SCH ×3 (10:08→20:40)
--- NOTE | 2019-03-17 11:12 | NUR ---
Patient was compliant with morning medications given crushed in vanilla/chocolate boost shake served after breakfast. Pt takes his lactulose hidden in grape juice. He is disorganized and oriented to himself only. Patient wanders in hallway and checks door handles. He spends most of his time at the south end sitting in the chair by the nurses station or in room#229 sitting in that chair he takes his socks off many times each day and seems to prefer to be barefoot. [facility] after being directed there this morning for agitated/combative behaviors. This is his first day with the increased trazodone 25mg TID@0900,1300,1700. Patient is wearing onesie at this time as he continues to urinate inappropriately in corners of rooms and in the hallways. Patient slept 8 hours last night, night nurse gave him scheduled Trazodone 100mg, and then repeat trazodone 100mg and zyprexa at 2039. That is much more sleep than is usual for this patient.
--- NOTE | 2019-03-17 14:26 | NUR ---
Patient skipped lunch, he was drowsy in the west hallway and then moved to day room and fell asleep again. Nurse held 1300 Trazodone 25mg related to his sedation level. Will continue to monitor.
[2019-03-17 15:46] VITALS: BP 118/78
[2019-03-17] MEDS: risperiDONE 1 MG TABLET. PO SCH (20:21)
[2019-03-17] MEDS: MIRTAZAPINE 15 MG TABLET PO SCH (20:21)
[2019-03-17] MEDS: traZODone 100 MG TABLET. PO SCH (20:21)
--- NOTE | 2019-03-17 21:25 | PDOC ---
Exam Note: German Note: Please also refer to the separate dictated note~for this date of service dictated separately.~Patient seen individually. Discussed the patient with Nursing staff reviewed the chart.~Reviewed interim history and current functioning. Reviewed vital signs,~Labs/ Radiology~and current medications noted below. Continue current treatment with the changes noted in the dictated addendum note Assessment: Vital Signs/I&O: Vital Signs Date Time Temp Pulse Resp B/P (MAP) Pulse Ox O2 Delivery O2 Flow Rate FiO2 03/17/19 15:46 97.5 87 16 118/78 (91) 96 03/16/19 06:14 Room Air I & O 03/16/19 03/16/19 03/17/19 15:00 23:00 07:00 Intake Total 720 ml 360 ml Balance 720 ml 360 ml Labs: Laboratory Tests Test 03/17/19 09:18 White Blood Count 3.7 x10^3/uL (4.0-11.0) L Red Blood Count 4.25 x10^6/uL (4.30-5.70) L Hemoglobin 13.5 g/dL (13.0-17.5) Hematocrit 40.2 % (39.0-53.0) Mean Corpuscular Volume 95 fL (79-100) Mean Corpuscular Hemoglobin 32 pg (25-35) Mean Corpuscular Hemoglobin Concent 34 g/dL (31-37) Red Cell Distribution Width 12.4 % (11.5-14.5) Platelet Count 77 x10^3/uL (140-400) L Neutrophils (%) (Auto) 52 % (31-73) Lymphocytes (%) (Auto) 35 % (24-48) Monocytes (%) (Auto) 11 % (0-9) H Eosinophils (%) (Auto) 2 % (0-3) Basophils (%) (Auto) 1 % (0-3) Neutrophils # (Auto) 1.9 x10^3uL (1.8-7.7) Lymphocytes # (Auto) 1.3 x10^3/uL (1.0-4.8) Monocytes # (Auto) 0.4 x10^3/uL (0.0-1.1) Eosinophils # (Auto) 0.1 x10^3/uL (0.0-0.7) Basophils # (Auto) 0.0 x10^3/uL (0.0-0.2) Sodium Level 143 mmol/L (136-145) Potassium Level 4.3 mmol/L (3.5-5.1) Chloride Level 104 mmol/L (98-107) Carbon Dioxide Level 33 mmol/L (21-32) H Anion Gap 6 (6-14) Blood Urea Nitrogen 17 mg/dL (8-26) Creatinine 1.2 mg/dL (0.7-1.3) Estimated GFR (Cockcroft-Gault) 72.6 BUN/Creatinine Ratio 14 (6-20) Glucose Level 142 mg/dL (70-99) H Calcium Level 9.3 mg/dL (8.5-10.1) Magnesium Level 2.3 mg/dL (1.8-2.4) Total Bilirubin 0.7 mg/dL (0.2-1.0) Aspartate Amino Transferase (AST) 17 U/L (15-37) Alanine Aminotransferase (ALT) 17 U/L (16-63) Alkaline Phosphatase 55 U/L (46-116) Total Protein 7.5 g/dL (6.4-8.2) Albumin 3.7 g/dL (3.4-5.0) Albumin/Globulin Ratio 1.0 (1.0-1.7) Current Medications: I have reviewed the current psychotropics carefully including drug interactions. Risk benefit ratio favors no change other than as noted in my dictated progress note. 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
[2019-03-18] MEDS: traZODone 100 MG TABLET. PO PRN (00:47)
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
--- NOTE | 2019-03-18 01:50 | NUR ---
Nursing Note: Assumed care of pt. this evening, he was walking around in the day room. He has been talking to people that not there and answering them back. He has been walking around trying to open doors. He has been compliant with taking his HS meds crushed in pudding/strawberry boost. He has been agitated at times on this shift, but been re-directed.
[2019-03-18 05:42] VITALS: BP 142/84
[2019-03-18] MEDS: traZODone 50 MG TABLET. PO SCH ×3 (08:22→18:06)
[2019-03-18] MEDS: medroxyPROGESTERone 5 MG TABLET PO SCH (08:22)
[2019-03-18] MEDS: SERTRALINE 50 MG TABLET. PO SCH (08:28)
[2019-03-18] MEDS: DIVALPROEX 125 MG CAP.SPRINK PO SCH ×2 (08:28→20:09)
[2019-03-18] MEDS: LACTULOSE 20 GM/30 ML SOLUTION. PO SCH (08:29)
[2019-03-18] MEDS: VITS A & D/LANOLIN TOPICAL OINTMENT 56GM TUBE. TP SCH ×2 (08:29→20:10)
--- NOTE | 2019-03-18 09:47 | NUR ---
WEEKLY NOTE: Pt is mostly medication compliant as they are crushed in pudding or ice cream. Pt is eating 100% and sleeping on average 4.75 hours. Pt continues to wander the unit and door checks but can be redirectable. Pt does not attend groups well and is more interactive with staff than other pts. Pt is combative during times of cares in which pt needs up to 5 individuals to help change him. Pt Risperdal will be increased to 4mg. At this time, pt will return to [facility] in [place] as no other placement for pt has been found. KWASI will continue to work with pt dtr and the facility within finalizing discharge plans. BOUBACAROS week after next.
--- NOTE | 2019-03-18 10:11 | NUR ---
WEEKLY ACTIVITY THERAPY NOTE Date of Admission: 02/27/2019 Date of AT Assessment: 03/02/2019 Goal aimed: to increase sensory stimulation/ engagement. Initial Goal: Pt. will participate in at least one individual activity before discharge. Weekly progress towards goal: on track- no 1:1, one group participation Group participation level: min. Weekly highlights: asked therapist RG 'are you okay?' and attempted to assist with carrying box of supplies out to patio Behaviors observed: wandering, sleeping often, talks to self at times, more easily redirectable this week Plan: no change to goal Beneficial adaptations: gentle explanations with care, hand over hand assistance
--- NOTE | 2019-03-18 11:00 | NUR ---
Patient wandering in dining room during meal. Compliant with medications given in "chocolate shake". This nurse took patient to bathroom after breakfast and he was able to urinate in the toilet. He was cooperative and calm at that time. He was in day room after breakfast and was pushing other patients in their wheelchairs and trying to take walkers from some. He was somewhat verbally redirectible and then eventually sat down and fell asleep on the couch.
--- NOTE | 2019-03-18 13:05 | NUR ---
Patient fell asleep in day room at around 1030. At lunch time staff woke him up but he was still tired and went to sleep in his bed in his room. Lunch tray was held. Did not give 1300 trazadone 25mg because patient was sleeping.
--- NOTE | 2019-03-18 14:33 | NUR ---
KWASI contacted pt dtr Rose to discuss an update on pt. Rose reports that evenings are the worst for him even at pt placement. Pt dtr has seen pt be combative at placement and mentioned that it also takes 4-5 staff to change him in the evenings there. KWASI did inform pt dtr that pt Risperdal would be getting increased and KWASI will continue to update pt dtr and Sindhu.
[2019-03-18 16:27] VITALS: BP 122/79
[2019-03-18] MEDS: MIRTAZAPINE 15 MG TABLET PO SCH (20:09)
[2019-03-18] MEDS: traZODone 100 MG TABLET. PO SCH (20:09)
[2019-03-18] MEDS: risperiDONE 2 MG TABLET. PO SCH (20:09)
--- NOTE | 2019-03-18 21:31 | PDOC ---
Exam Note: German Note: Please also refer to the separate dictated note~for this date of service dictated separately.~Patient seen individually. Discussed the patient with Nursing staff reviewed the chart.~Reviewed interim history and current functioning. Reviewed vital signs,~Labs/ Radiology~and current medications noted below. Continue current treatment with the changes noted in the dictated addendum note Assessment: Vital Signs/I&O: Vital Signs Date Time Temp Pulse Resp B/P (MAP) Pulse Ox O2 Delivery O2 Flow Rate FiO2 03/18/19 16:27 97.6 86 18 122/79 (93) 100 Room Air I & O 03/17/19 03/17/19 03/18/19 15:00 23:00 07:00 Intake Total 600 ml 480 ml 240 ml Balance 600 ml 480 ml 240 ml Current Medications: Meds: Current Medications Medications (Trade) Dose Ordered Sig/Edward Route PRN Reason Start Time Stop Time Status Last Admin Dose Admin Risperidone (RisperDAL) 4 mg QHS PO 03/18/19 21:00 03/18/19 20:10 I have reviewed the current psychotropics carefully including drug interactions. Risk benefit ratio favors no change other than as noted in my dictated progress note. 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
--- NOTE | 2019-03-19 00:02 | NUR ---
Nursing Note: Assumed care of pt. this evening, he was walking around in the day room. He has been walking around the day room, trying to open door, and able to be redirected. He has been compliant with taking his HS meds crushed in ice cream. No aggression or agitation noted at this time.
[2019-03-19 05:31] VITALS: BP 114/70
[2019-03-19] MEDS: traZODone 50 MG TABLET. PO SCH ×3 (08:42→16:33)
[2019-03-19] MEDS: DIVALPROEX 125 MG CAP.SPRINK PO SCH ×2 (08:42→20:03)
[2019-03-19] MEDS: SERTRALINE 50 MG TABLET. PO SCH (08:43)
[2019-03-19] MEDS: VITS A & D/LANOLIN TOPICAL OINTMENT 56GM TUBE. TP SCH ×2 (08:43→20:04)
[2019-03-19] MEDS: medroxyPROGESTERone 5 MG TABLET PO SCH (08:43)
[2019-03-19] MEDS: LACTULOSE 20 GM/30 ML SOLUTION. PO SCH (08:43)
--- NOTE | 2019-03-19 12:08 | NUR ---
Pt is sleeping in this am. No agitation, no aggression. Denies SI/HI. Compliant with medication and assessment.
[2019-03-19 16:17] VITALS: BP 104/72
[2019-03-19] MEDS: MIRTAZAPINE 15 MG TABLET PO SCH (20:03)
[2019-03-19] MEDS: risperiDONE 2 MG TABLET. PO SCH (20:03)
[2019-03-19] MEDS: traZODone 100 MG TABLET. PO SCH (20:03)
--- NOTE | 2019-03-19 21:35 | PDOC ---
Exam Note: German Note: Please also refer to the separate dictated note~for this date of service dictated separately.~Patient seen individually. Discussed the patient with Nursing staff reviewed the chart.~Reviewed interim history and current functioning. Reviewed vital signs,~Labs/ Radiology~and current medications noted below. Continue current treatment with the changes noted in the dictated addendum note Assessment: Vital Signs/I&O: Vital Signs Date Time Temp Pulse Resp B/P (MAP) Pulse Ox O2 Delivery O2 Flow Rate FiO2 03/19/19 16:17 96.9 83 20 104/72 (83) 99 03/18/19 16:27 Room Air I & O 03/18/19 03/18/19 03/19/19 15:00 23:00 07:00 Intake Total 200 ml 0 ml 240 ml Balance 200 ml 0 ml 240 ml Current Medications: I have reviewed the current psychotropics carefully including drug interactions. Risk benefit ratio favors no change other than as noted in my dictated progress note. 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
--- NOTE | 2019-03-19 22:03 | PN ---
DATE: 03/18/2019 PROGRESS NOTE This late entry 03/18/2019 covers elements not covered in my initial note. SUBJECTIVE: I met with the patient evening of 03/18/2019 and staffed at a treatment team meeting with the entire team in the morning of 03/18/2019. The patient slept for 3/4 hours average. Appetite 75-100%. He has been wandering, confused, labile, actively hallucinating, takes meds hidden and snacks, combative with cares yesterday morning. On Friday03/16/2019, he had soiled himself and then took his bowel movement spread it all on the wall near the entrance to the unit. This has not recurred since then. REVIEW OF SYSTEMS: No CV, , pulmonary, eye, ENT system symptoms on review. Reliability poor. MENTAL STATUS EXAM: Oriented to himself. Insight, judgment, recent and remote memory, attention, concentration, fund of knowledge poor, consistent with his diagnosis. IMPRESSION: Major neurocognitive disorder, Alzheimer, vascular with delusion, depression, behavioral disturbance; anxiety disorder, unspecified; impulse control disorder, unspecified. Schizophrenia, chronic paranoid with acute exacerbation, schizoaffective disorder, bipolar type, mixed with psychotic features, in partial remission. Rest unchanged. PLAN: Continue current psychotropics. Increase Risperdal from 3.5 mg at bedtime to 4 mg at bedtime. Continue rest per initial note. MAN Joyce RENAE MD DR: ROMINA/sung JOB#: [id number] / [id number]
--- NOTE | 2019-03-19 22:10 | PN ---
DATE: 03/17/2019 PSYCHIATRIC PROGRESS NOTE This late entry 03/17/2019 covers elements not covered in my initial note. SUBJECTIVE: I met with the patient evening of 03/17/2019. The patient slept 8 hours previous night. He was quite combative around 10:00 a.m., while toileting had to be in the vest albeit to reduce stimuli. He got trazodone at 9:00 a.m., was then sedated in the afternoon. Haldol and 1 p.m. 25 mg trazodone were held because of this. Later in the day, he was still psychotic, confused, but not sedated. REVIEW OF SYSTEMS: No CV, , pulmonary, eye, ENT system symptoms on review. Reliability poor. MENTAL STATUS EXAM: Oriented to himself. Insight, judgment, recent and remote memory, attention, concentration, fund of knowledge poor, consistent with his diagnosis mentioned in my initial note. PLAN: No change from initial note. VAIBHAV RENAE MD DR: ROMINA/sung JOB#: [id number] / [id number]
--- NOTE | 2019-03-20 00:24 | NUR ---
Nursing Note Pt wanders the unit shredding jed. Leaves a trail behind him of shreds of paper, then shoves piles of it into his shirt and pants. Speaks in a word salad, constantly talking without purpose or audience. Meds given in chocolate Ice cream.
[2019-03-20 06:06] VITALS: BP 117/73
[2019-03-20] MEDS: DIVALPROEX 125 MG CAP.SPRINK PO SCH ×2 (09:14→19:54)
[2019-03-20] MEDS: traZODone 50 MG TABLET. PO SCH ×3 (09:15→16:57)
[2019-03-20] MEDS: LACTULOSE 20 GM/30 ML SOLUTION. PO SCH (09:15)
[2019-03-20] MEDS: medroxyPROGESTERone 5 MG TABLET PO SCH (09:15)
[2019-03-20] MEDS: SERTRALINE 50 MG TABLET. PO SCH (09:16)
[2019-03-20] MEDS: VITS A & D/LANOLIN TOPICAL OINTMENT 56GM TUBE. TP SCH ×2 (09:16→19:54)
--- NOTE | 2019-03-20 11:06 | NUR ---
No agitation, no aggression. Denies SI/HI. Compliant with medication and assessment. Pt is sleeping in this am.
[2019-03-20 15:59] VITALS: BP 117/76
[2019-03-20] MEDS: traZODone 100 MG TABLET. PO SCH (19:54)
[2019-03-20] MEDS: MIRTAZAPINE 15 MG TABLET PO SCH (19:54)
[2019-03-20] MEDS: risperiDONE 2 MG TABLET. PO SCH (19:54)
[2019-03-20] MEDS: traZODone 100 MG TABLET. PO PRN (22:13)
--- NOTE | 2019-03-20 22:50 | PDOC ---
Exam Note: German Note: Please also refer to the separate dictated note~for this date of service dictated separately.~Patient seen individually. Discussed the patient with Nursing staff reviewed the chart.~Reviewed interim history and current functioning. Reviewed vital signs,~Labs/ Radiology~and current medications noted below. Continue current treatment with the changes noted in the dictated addendum note Assessment: Vital Signs/I&O: Vital Signs Date Time Temp Pulse Resp B/P (MAP) Pulse Ox O2 Delivery O2 Flow Rate FiO2 03/20/19 15:59 97.8 91 16 117/76 (90) 99 03/18/19 16:27 Room Air I & O 03/19/19 03/19/19 03/20/19 15:00 23:00 07:00 Intake Total 240 ml 960 ml Balance 240 ml 960 ml Current Medications: I have reviewed the current psychotropics carefully including drug interactions. Risk benefit ratio favors no change other than as noted in my dictated progress note. Diagnosis: Problems: (1) Mental status change resolved (2) Paranoid schizophrenia (3) Anxiety disorder (4) Impulse control disorder (5) Schizoaffective disorder, bipolar type (6) Schizophrenia, paranoid, chronic with acute exacerbation (7) Mixed Alzheimer's and vascular dementia with behavior disturbances (8) Major neurocognitive disorder VAIBHAV RENAE MD Mar 20, 2019 22:50
--- NOTE | 2019-03-20 23:00 | NUR ---
Pt has been wandering unit all evening. Pt continues to ramble in word salad. Compliant with medications crushed in chocolate ice cream. Pt irritable with shower, but no aggression or combativeness noted.
[2019-03-21 06:11] VITALS: BP 163/94
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
[2019-03-21] MEDS: LACTULOSE 20 GM/30 ML SOLUTION. PO SCH (08:26)
[2019-03-21] MEDS: traZODone 50 MG TABLET. PO SCH ×3 (08:26→16:35)
[2019-03-21] MEDS: DIVALPROEX 125 MG CAP.SPRINK PO SCH ×2 (08:26→20:30)
[2019-03-21] MEDS: medroxyPROGESTERone 5 MG TABLET PO SCH (08:27)
[2019-03-21] MEDS: SERTRALINE 50 MG TABLET. PO SCH (08:35)
[2019-03-21] MEDS: VITS A & D/LANOLIN TOPICAL OINTMENT 56GM TUBE. TP SCH ×2 (08:35→20:30)
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
[2019-03-21] MEDS: risperiDONE 2 MG TABLET. PO SCH (20:29)
[2019-03-21] MEDS: MIRTAZAPINE 15 MG TABLET PO SCH (20:30)
[2019-03-21] MEDS: traZODone 100 MG TABLET. PO SCH (20:30)
--- NOTE | 2019-03-21 20:50 | PN ---
DATE: 03/19/2019 PSYCHIATRIC PROGRESS NOTE This late entry 03/19/2019 covers elements not covered in my initial note. SUBJECTIVE: I met with the patient evening of 03/19/2019. The patient slept 6-1/2 hours previous night. He is somewhat sedated at night, but did take a shower and gets agitated during showers and cares because he does not seem to understand what is being done. Still remains psychotic, but not as floridly talking to himself like he was a few days back. It took 3 staff members during his cares due to the above reason. REVIEW OF SYSTEMS: No CV, , pulmonary, eye, ENT system symptoms on review. Reliability poor. MENTAL STATUS EXAM: Oriented to himself. Insight, judgment, recent and remote memory, attention, concentration, fund of knowledge poor, consistent with his diagnosis mentioned in my initial note. PLAN: No change from initial note. Continue Depakote, Zoloft, and he is on Provera, trazodone, Remeron, Risperdal 4 mg at bedtime, scheduled trazodone during the day. MAN Joyce RENAE MD DR: ROMINA/sung JOB#: [id number] / [id number]
--- NOTE | 2019-03-21 20:53 | PN ---
DATE: 03/20/2019 PSYCHIATRIC PROGRESS NOTE. This late entry of 03/20/2019 covers the elements not covered in my initial note. SUBJECTIVE: I met with the patient in the evening of 03/20/2019. The patient slept in till around lunchtime, but slept 6-1/2 hours before that. He has made some comments to female nursing staff about being "pretty lady", but has not been sexually inappropriate otherwise physically. REVIEW OF SYSTEMS: No CV, , pulmonary, eye, ENT system symptoms on review. He is less paranoid. MENTAL STATUS EXAM: Oriented to himself. Insight, judgment, recent and remote memory, attention, concentration, fund of knowledge poor, consistent with his diagnosis mentioned in my initial note. PLAN: No change from initial note. Valproic acid level therapeutic at 60. MAN Joyce RENAE MD DR: ROMINA/sung JOB#: [id number] / [id number]
--- NOTE | 2019-03-21 21:28 | PDOC ---
Exam Note: German Note: Please also refer to the separate dictated note~for this date of service dictated separately.~Patient seen individually. Discussed the patient with Nursing staff reviewed the chart.~Reviewed interim history and current functioning. Reviewed vital signs,~Labs/ Radiology~and current medications noted below. Continue current treatment with the changes noted in the dictated addendum note Assessment: Vital Signs/I&O: Vital Signs Date Time Temp Pulse Resp B/P (MAP) Pulse Ox O2 Delivery O2 Flow Rate FiO2 03/21/19 06:11 97.8 85 16 163/94 (117) 100 03/18/19 16:27 Room Air I & O 03/20/19 03/20/19 03/21/19 15:00 23:00 07:00 Intake Total 240 ml 480 ml Balance 240 ml 480 ml Current Medications: I have reviewed the current psychotropics carefully including drug interactions. Risk benefit ratio favors no change other than as noted in my dictated progress note. 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
--- NOTE | 2019-03-21 23:30 | NUR ---
Pt wandering unit this evening. Compliant with crushed medications in ice cream. No agitation noted.
[2019-03-22 05:52] VITALS: BP 121/74
[2019-03-22] MEDS: traZODone 50 MG TABLET. PO SCH ×3 (07:51→16:45)
[2019-03-22] MEDS: LACTULOSE 20 GM/30 ML SOLUTION. PO SCH (07:51)
[2019-03-22] MEDS: DIVALPROEX 125 MG CAP.SPRINK PO SCH ×2 (07:51→20:15)
[2019-03-22] MEDS: VITS A & D/LANOLIN TOPICAL OINTMENT 56GM TUBE. TP SCH ×2 (07:52→20:15)
[2019-03-22] MEDS: medroxyPROGESTERone 5 MG TABLET PO SCH (07:52)
[2019-03-22] MEDS: SERTRALINE 50 MG TABLET. PO SCH (07:53)
--- NOTE | 2019-03-22 09:41 | NUR ---
Pt slept in this am. No agitation, no aggression. Pt was compliant with his medication and assessment.
--- NOTE | 2019-03-22 12:47 | NUR ---
Pt was X 3 assist with brief change. Pt was non combative, non resistive, pt was not aggressive physically and was not aggressive verbally and was successful with slow, step by step directions with encouragement such as "Reji, we need to change your shirt can you please help us take it off?" or "Reji, can you please lift your foot up?" Good job." Pt was able to pull up his own pants. He then walked with nurse to lunch.
[2019-03-22 16:02] VITALS: BP 160/97
--- NOTE | 2019-03-22 18:20 | NUR ---
Pt has been wandering the unit, door checking, moving furniture, and he took a chair and turned it on its side in a non aggressive manor to look underneath it. Pt is disorganized and confused but can follow simple commands such as "Hey Reji, come with me." LEOPOLDON pretty stevens given.
[2019-03-22] MEDS: MIRTAZAPINE 15 MG TABLET PO SCH (20:14)
[2019-03-22] MEDS: risperiDONE 2 MG TABLET. PO SCH (20:14)
[2019-03-22] MEDS: traZODone 100 MG TABLET. PO SCH (20:14)
--- NOTE | 2019-03-22 21:36 | PDOC ---
Exam Note: German Note: Please also refer to the separate dictated note~for this date of service dictated separately.~Patient seen individually. Discussed the patient with Nursing staff reviewed the chart.~Reviewed interim history and current functioning. Reviewed vital signs,~Labs/ Radiology~and current medications noted below. Continue current treatment with the changes noted in the dictated addendum note Assessment: Vital Signs/I&O: Vital Signs Date Time Temp Pulse Resp B/P (MAP) Pulse Ox O2 Delivery O2 Flow Rate FiO2 03/22/19 16:02 97.0 88 18 160/97 (118) 97 03/18/19 16:27 Room Air I & O 03/21/19 03/21/19 03/22/19 14:59 22:59 06:59 Intake Total 720 ml 840 ml Balance 720 ml 840 ml Current Medications: Meds: Current Medications Medications (Trade) Dose Ordered Sig/Edward Route PRN Reason Start Time Stop Time Status Last Admin Dose Admin Sertraline HCl (Zoloft) 75 mg DAILY PO 03/22/19 09:00 03/22/19 07:53 Risperidone (RisperDAL) 5 mg QHS PO 03/22/19 21:00 03/22/19 20:15 I have reviewed the current psychotropics carefully including drug interactions. Risk benefit ratio favors no change other than as noted in my dictated progress note. 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
--- NOTE | 2019-03-22 22:05 | PN ---
DATE: 03/21/2019 PSYCHIATRIC PROGRESS NOTE This late entry 03/21/2019 covers elements not covered in my initial note. SUBJECTIVE: I met with the patient evening of 03/21/2019. The patient slept 6-1/2 hours previous night. He has been holding things at times and hiding his medications that have to be given crushed. He was combative during cares, it took 5 people to change him, but this seems partly because he cannot understand what is being done. He has been door checking at times. REVIEW OF SYSTEMS: No CV, , pulmonary, eye, ENT system symptoms on review. Reliability poor. MENTAL STATUS EXAM: Oriented to himself. Insight, judgment, recent and remote memory, attention, concentration, fund of knowledge poor, consistent with his diagnosis mentioned in my initial note. PLAN: No change from initial note, but after he has been on Zoloft 50 mg a day for 3 days, we will increase it to 75 mg a day. VAIBHAV RENAE MD DR: ROMINA/sung JOB#: [id number] / [id number]
--- NOTE | 2019-03-22 22:44 | NUR ---
Pt wandering unit and door checking this evening. Compliant with crushed medications in ice cream. Pt was incontinent of stool and required a shower. Staff x4 assisted pt with cares. Pt was resistive, but not combative. Pt able to follow short, simple commands without becoming agitated tonight.
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
[2019-03-23 05:54] VITALS: BP 154/78
[2019-03-23 06:14] LABS: BASO % 0 % (0-3); EOS # 0.1 x10^3/uL (0.0-0.7); EOS % 2 % (0-3); HEMATOCRIT 37.2 % (39.0-53.0); HEMOGLOBIN 12.5 g/dL (13.0-17.5); LYMPH # 1.7 x10^3/uL (1.0-4.8); LYMPH % 44 % (24-48); MEAN CORPUSCULAR HEMOGLOBIN 32 pg (25-35); MEAN CORPUSCULAR HGB CONC 34 g/dL (31-37); MEAN CORPUSCULAR VOLUME 95 fL (79-100); MONO # 0.4 x10^3/uL (0.0-1.1); MONO % 11 % (0-9); NEUT # 1.6 x10^3uL (1.8-7.7); NEUT % 42 % (31-73); PLATELET COUNT 64 x10^3/uL (140-400); RED BLOOD COUNT 3.93 x10^6/uL (4.30-5.70); RED CELL DISTRIBUTION WIDTH 12.4 % (11.5-14.5); WHITE BLOOD COUNT 3.9 x10^3/uL (4.0-11.0)
[2019-03-23 06:27] LABS: ALBUMIN 3.2 g/dL (3.4-5.0); ALBUMIN/GLOBULIN RATIO 0.9 (1.0-1.7); CREATININE 1.1 mg/dL (0.7-1.3); GFR 80.3; POTASSIUM 4.2 mmol/L (3.5-5.1); TOTAL BILIRUBIN 0.4 mg/dL (0.2-1.0); TOTAL PROTEIN 6.7 g/dL (6.4-8.2)
[2019-03-23] MEDS: DIVALPROEX 125 MG CAP.SPRINK PO SCH ×2 (07:39→20:50)
[2019-03-23] MEDS: SERTRALINE 50 MG TABLET. PO SCH (07:39)
[2019-03-23] MEDS: medroxyPROGESTERone 5 MG TABLET PO SCH (07:39)
[2019-03-23] MEDS: traZODone 50 MG TABLET. PO SCH ×3 (07:39→16:53)
[2019-03-23] MEDS: LACTULOSE 20 GM/30 ML SOLUTION. PO SCH (07:39)
[2019-03-23] MEDS: VITS A & D/LANOLIN TOPICAL OINTMENT 56GM TUBE. TP SCH ×2 (07:41→20:51)
--- NOTE | 2019-03-23 09:43 | NUR ---
Patient is located in dining room at time of assessment and medication administration. Patient is calm and cooperative with meds crushed in chocolate ice cream. Patient is A&O to self only. Patient paces halls during the day. Patient is having no behaviors so far this am. Will continue to monitor.
[2019-03-23 15:40] VITALS: BP 112/70
[2019-03-23] MEDS: traZODone 100 MG TABLET. PO SCH (20:49)
[2019-03-23] MEDS: risperiDONE 2 MG TABLET. PO SCH (20:49)
[2019-03-23] MEDS: MIRTAZAPINE 15 MG TABLET PO SCH (20:50)
--- NOTE | 2019-03-23 21:00 | NUR ---
Patient in the day room at start of shift. Compliant with assessments, took medications crushed in chocolate pudding. No hallucinations or delusions noted. No agitation until time to change brief. Required 3 staff members to change him. Did not really resist physically but was verbally aggressive. Once he was cleaned up and tucked back in, he calmed down and went to sleep.
--- NOTE | 2019-03-23 21:46 | PDOC ---
Exam Note: German Note: Please also refer to the separate dictated note~for this date of service dictated separately.~Patient seen individually. Discussed the patient with Nursing staff reviewed the chart.~Reviewed interim history and current functioning. Reviewed vital signs,~Labs/ Radiology~and current medications noted below. Continue current treatment with the changes noted in the dictated addendum note Assessment: Vital Signs/I&O: Vital Signs Date Time Temp Pulse Resp B/P (MAP) Pulse Ox O2 Delivery O2 Flow Rate FiO2 03/23/19 15:40 98.0 81 20 112/70 (84) 100 Room Air I & O 03/22/19 03/22/19 03/23/19 14:59 22:59 06:59 Intake Total 0 ml 240 ml 240 ml Balance 0 ml 240 ml 240 ml Labs: Laboratory Tests Test 03/23/19 05:54 White Blood Count 3.9 x10^3/uL (4.0-11.0) L Red Blood Count 3.93 x10^6/uL (4.30-5.70) L Hemoglobin 12.5 g/dL (13.0-17.5) L Hematocrit 37.2 % (39.0-53.0) L Mean Corpuscular Volume 95 fL (79-100) Mean Corpuscular Hemoglobin 32 pg (25-35) Mean Corpuscular Hemoglobin Concent 34 g/dL (31-37) Red Cell Distribution Width 12.4 % (11.5-14.5) Platelet Count 64 x10^3/uL (140-400) L Neutrophils (%) (Auto) 42 % (31-73) Lymphocytes (%) (Auto) 44 % (24-48) Monocytes (%) (Auto) 11 % (0-9) H Eosinophils (%) (Auto) 2 % (0-3) Basophils (%) (Auto) 0 % (0-3) Neutrophils # (Auto) 1.6 x10^3uL (1.8-7.7) L Lymphocytes # (Auto) 1.7 x10^3/uL (1.0-4.8) Monocytes # (Auto) 0.4 x10^3/uL (0.0-1.1) Eosinophils # (Auto) 0.1 x10^3/uL (0.0-0.7) Basophils # (Auto) 0.0 x10^3/uL (0.0-0.2) Sodium Level 142 mmol/L (136-145) Potassium Level 4.2 mmol/L (3.5-5.1) Chloride Level 106 mmol/L (98-107) Carbon Dioxide Level 31 mmol/L (21-32) Anion Gap 5 (6-14) L Blood Urea Nitrogen 18 mg/dL (8-26) Creatinine 1.1 mg/dL (0.7-1.3) Estimated GFR (Cockcroft-Gault) 80.3 BUN/Creatinine Ratio 16 (6-20) Glucose Level 93 mg/dL (70-99) Calcium Level 9.0 mg/dL (8.5-10.1) Total Bilirubin 0.4 mg/dL (0.2-1.0) Aspartate Amino Transferase (AST) 14 U/L (15-37) L Alanine Aminotransferase (ALT) 15 U/L (16-63) L Alkaline Phosphatase 70 U/L (46-116) Total Protein 6.7 g/dL (6.4-8.2) Albumin 3.2 g/dL (3.4-5.0) L Albumin/Globulin Ratio 0.9 (1.0-1.7) L Current Medications: I have reviewed the current psychotropics carefully including drug interactions. Risk benefit ratio favors no change other than as noted in my dictated progress note. 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
--- NOTE | 2019-03-23 21:53 | PN ---
DATE: 03/22/2019 PROGRESS NOTE This late entry 03/22/2019 covers elements not covered in my initial note. SUBJECTIVE: I met with the patient evening of 03/22/2019. The patient slept 6-1/4 hours previous night and then some more after the morning at 5:00 cutoff time. He was up at 12:45, did well at night. 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 This is when he has the most difficulties when staffs are trying to assist him with cares. He does not seem to understands staff have been going very slow to help him understand and he does better. Later it took 3 persons to assist him. He remains paranoid, less so than before. REVIEW OF SYSTEMS: No CV, , pulmonary, eye, ENT system symptoms on review. Reliability poor. MENTAL STATUS EXAM: Oriented to himself. Insight, judgment, recent and remote memory, attention, concentration, fund of knowledge poor consistent with his diagnosis mentioned in my initial note. PLAN: No change from initial note. MAN Joyce RENAE MD DR: ROMINA/sung JOB#: [id number] / [id number]
[2019-03-24 06:00] VITALS: BP 145/95
[2019-03-24] MEDS: traZODone 50 MG TABLET. PO SCH ×3 (08:24→17:29)
[2019-03-24] MEDS: DIVALPROEX 125 MG CAP.SPRINK PO SCH ×2 (08:24→19:39)
[2019-03-24] MEDS: medroxyPROGESTERone 5 MG TABLET PO SCH (08:25)
[2019-03-24] MEDS: SERTRALINE 50 MG TABLET. PO SCH (08:25)
[2019-03-24] MEDS: LACTULOSE 20 GM/30 ML SOLUTION. PO SCH (08:26)
[2019-03-24] MEDS: VITS A & D/LANOLIN TOPICAL OINTMENT 56GM TUBE. TP SCH ×2 (09:00→19:42)
--- NOTE | 2019-03-24 10:47 | NUR ---
Pt is calm, confused, cooperative, disorganized but easily redirectable. No agitation, no aggression. Pt is compliant with his medications and assessment.
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
[2019-03-24 16:20] VITALS: BP 130/89
[2019-03-24] MEDS: risperiDONE 2 MG TABLET. PO SCH (19:39)
[2019-03-24] MEDS: MIRTAZAPINE 15 MG TABLET PO SCH (19:41)
[2019-03-24] MEDS: traZODone 100 MG TABLET. PO SCH (19:41)
--- NOTE | 2019-03-24 21:00 | NUR ---
Patient on the patio at start of shift, wandering in and out of the day room. Calm, cooperative and compliant with assessments and medications crushed and mixed with chocolate pudding. He did begin trying to pull out wang again, and was exit-seeking, but was easily redirectable.
--- NOTE | 2019-03-24 21:39 | PDOC ---
Exam Note: German Note: Please also refer to the separate dictated note~for this date of service dictated separately.~Patient seen individually. Discussed the patient with Nursing staff reviewed the chart.~Reviewed interim history and current functioning. Reviewed vital signs,~Labs/ Radiology~and current medications noted below. Continue current treatment with the changes noted in the dictated addendum note Assessment: Vital Signs/I&O: Vital Signs Date Time Temp Pulse Resp B/P (MAP) Pulse Ox O2 Delivery O2 Flow Rate FiO2 03/24/19 16:20 97.5 73 16 130/89 (103) 95 03/24/19 06:00 Room Air I & O 03/23/19 03/23/19 03/24/19 14:59 22:59 06:59 Intake Total 720 ml 120 ml Balance 720 ml 120 ml Current Medications: I have reviewed the current psychotropics carefully including drug interactions. Risk benefit ratio favors no change other than as noted in my dictated progress note. 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
--- NOTE | 2019-03-24 23:00 | PN ---
DATE: 03/23/2019 This late entry 03/23/2019 covers elements not covered in my initial note. SUBJECTIVE: I met with the patient evening of 03/23/2019. The patient slept 5-1/2 hours previous night. The patient has had a "great day" per nursing staff. He gets a little upset with cares, had a bowel movement and needs assistance with cleaning up and resists this from staff, but otherwise much better. REVIEW OF SYSTEMS: No CV, , PULMONARY, EYE, ENT system symptoms on review. Reliability poor. MENTAL STATUS EXAM: Oriented to himself. Insight, judgment, recent and remote memory, attention, concentration, fund of knowledge poor, consistent with his diagnosis mentioned in my initial note. PLAN: No change from initial note. MAN Joyce RENAE MD DR: ROMINA/sung JOB#: [id number] / [id number]
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
[2019-03-25 06:31] VITALS: BP 157/83
[2019-03-25] MEDS: DIVALPROEX 125 MG CAP.SPRINK PO SCH ×2 (08:42→20:09)
[2019-03-25] MEDS: traZODone 50 MG TABLET. PO SCH ×3 (08:42→17:25)
[2019-03-25] MEDS: medroxyPROGESTERone 5 MG TABLET PO SCH (08:42)
[2019-03-25] MEDS: SERTRALINE 50 MG TABLET. PO SCH (08:42)
[2019-03-25] MEDS: VITS A & D/LANOLIN TOPICAL OINTMENT 56GM TUBE. TP SCH ×2 (08:48→20:09)
[2019-03-25] MEDS: LACTULOSE 20 GM/30 ML SOLUTION. PO SCH (08:48)
--- NOTE | 2019-03-25 10:32 | NUR ---
WEEKLY NOTE: Pt is eating 100% and sleeping 6 hours on average. Pt continues to wander, randomly exit seek and gets agitated/combative during cares. Pt remains in a onsie due to his inability to use the restroom in his room.. Tx team is recommending that pt have another opportunity to be in regular clothes. Pt has been complimentary to female staff but not inappropriate. Pt has been giving some Zyprexa Zydis to aid in his irritability through the day. Pt is on Risperdal 5mg q HS, Depakote and Trazodone, which will be increased to 37.5mg q HS. ELOS for middle of next week.
--- NOTE | 2019-03-25 10:39 | NUR ---
WEEKLY ACTIVITY THERAPY NOTE Date of Admission: 02/27/2019 Date of AT Assessment: 03/02/2019 Goal aimed: to increase sensory stimulation/ engagement. Initial Goal: Pt. will participate in at least one individual activity before discharge. Weekly progress towards goal: did not achieve Group participation level: moderate during one group this week Weekly highlights: achieved goal, enjoys patio Behaviors observed: sitting in other pt's rooms, flipping through magazines, wandering, mostly calm and redirectable, one failed attempt of 1:1 Plan: no change to goal Beneficial adaptations: gentle explanations with care, hand over hand assistance
--- NOTE | 2019-03-25 13:30 | NUR ---
Pt is calm, confused, cooperative, disorganized but easily redirectable. No agitation, no aggression. Pt is compliant with his medications and assessment.
[2019-03-25 16:23] VITALS: BP 137/83
[2019-03-25] MEDS: traZODone 100 MG TABLET. PO SCH (20:07)
[2019-03-25] MEDS: MIRTAZAPINE 15 MG TABLET PO SCH (20:08)
[2019-03-25] MEDS: risperiDONE 2 MG TABLET. PO SCH (20:08)
--- NOTE | 2019-03-25 21:00 | NUR ---
Patient in the day room at start of shift. Calm, cooperative and compliant with assessments and medications crushed and mixed with chocolate pudding. Confused and disorganized, but able to be redirected. No agitation noted.
[2019-03-25] MEDS: traZODone 100 MG TABLET. PO PRN (21:40)
--- NOTE | 2019-03-25 21:46 | PDOC ---
Exam Note: German Note: Please also refer to the separate dictated note~for this date of service dictated separately.~Patient seen individually. Discussed the patient with Nursing staff reviewed the chart.~Reviewed interim history and current functioning. Reviewed vital signs,~Labs/ Radiology~and current medications noted below. Continue current treatment with the changes noted in the dictated addendum note Assessment: Vital Signs/I&O: Vital Signs Date Time Temp Pulse Resp B/P (MAP) Pulse Ox O2 Delivery O2 Flow Rate FiO2 03/25/19 16:23 97.9 84 16 137/83 (101) 100 Room Air I & O 03/24/19 03/24/19 03/25/19 15:00 23:00 07:00 Intake Total 600 ml 120 ml Balance 600 ml 120 ml Current Medications: Meds: Current Medications Medications (Trade) Dose Ordered Sig/Edward Route PRN Reason Start Time Stop Time Status Last Admin Dose Admin Trazodone HCl (Desyrel) 25 mg 0900,1700 PO 03/25/19 17:00 03/25/19 17:26 Trazodone HCl (Desyrel) 37.5 mg 1300 PO 03/25/19 13:00 03/25/19 12:20 I have reviewed the current psychotropics carefully including drug interactions. Risk benefit ratio favors no change other than as noted in my dictated progress note. 

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
[2019-03-26 06:08] VITALS: BP 143/73
[2019-03-26] MEDS: DIVALPROEX 125 MG CAP.SPRINK PO SCH ×2 (08:05→19:40)
[2019-03-26] MEDS: LACTULOSE 20 GM/30 ML SOLUTION. PO SCH (08:10)
[2019-03-26] MEDS: traZODone 50 MG TABLET. PO SCH ×3 (08:10→17:03)
[2019-03-26] MEDS: SERTRALINE 50 MG TABLET. PO SCH (08:11)
[2019-03-26] MEDS: medroxyPROGESTERone 5 MG TABLET PO SCH (08:12)
[2019-03-26] MEDS: VITS A & D/LANOLIN TOPICAL OINTMENT 56GM TUBE. TP SCH ×2 (08:18→19:41)
[2019-03-26 16:39] VITALS: BP 112/74
[2019-03-26] MEDS: MIRTAZAPINE 15 MG TABLET PO SCH (19:40)
[2019-03-26] MEDS: risperiDONE 2 MG TABLET. PO SCH (19:41)
[2019-03-26] MEDS: traZODone 100 MG TABLET. PO SCH (19:41)
--- NOTE | 2019-03-26 20:23 | PN ---
DATE: 03/24/2019 PSYCHIATRIC PROGRESS NOTE This late entry 03/24/2019 covers elements not covered in my initial note. SUBJECTIVE: I met with the patient evening of 03/24/2019. The patient slept 4-1/4 hours previous night. He remains confused, but less psychotic. Took a nap after lunch, was agitated, received Zyprexa at 11:15 a.m. He was making some vague statement. They are all going to be not fight, digging. He was agitated and started digging rapidly in the flower box outside on the patio, but redirected. REVIEW OF SYSTEMS: No CV, , pulmonary, eye, ENT system symptoms on review. Reliability poor. MENTAL STATUS EXAM: Oriented to himself. Insight, judgment, recent and remote memory, attention, concentration, fund of knowledge poor, consistent with his diagnosis mentioned in my initial note. PLAN: No change from initial note. We are adjusting his Depakote and his Risperdal has been increased. May need to increase this further in due course. MAN Joyce RENAE MD DR: ROMINA/sung JOB#: [id number] / [id number]
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
--- NOTE | 2019-03-26 21:49 | PDOC ---
Exam Note: German Note: Please also refer to the separate dictated note~for this date of service dictated separately.~Patient seen individually. Discussed the patient with Nursing staff reviewed the chart.~Reviewed interim history and current functioning. Reviewed vital signs,~Labs/ Radiology~and current medications noted below. Continue current treatment with the changes noted in the dictated addendum note Assessment: Vital Signs/I&O: Vital Signs Date Time Temp Pulse Resp B/P (MAP) Pulse Ox O2 Delivery O2 Flow Rate FiO2 03/26/19 16:39 98.2 72 18 112/74 (87) 97 Room Air I & O 03/25/19 03/25/19 03/26/19 15:00 23:00 07:00 Intake Total 360 ml 240 ml 240 ml Balance 360 ml 240 ml 240 ml Current Medications: I have reviewed the current psychotropics carefully including drug interactions. Risk benefit ratio favors no change other than as noted in my dictated progress note. Diagnosis: Problems: (1) Paranoid schizophrenia (2) Anxiety disorder (3) Schizoaffective disorder, bipolar type (4) Schizophrenia, paranoid, chronic with acute exacerbation (5) Mixed Alzheimer's and vascular dementia with behavior disturbances (6) Major neurocognitive disorder VAIBHAV RENAE MD Mar 26, 2019 21:49
[2019-03-26] MEDS: traZODone 100 MG TABLET. PO PRN (22:14)
--- NOTE | 2019-03-27 00:32 | NUR ---
Nursing Note Pt at first wouldn't drink his shake with meds in it, but later was receptive and drank it all. Wanders the unit, less agitation than in the past shifts. Tolerated his shower fairly well for him, only 1 physical outburst of swinging during the shower. Much improved.
[2019-03-27 05:45] VITALS: BP 126/82
[2019-03-27] MEDS: traZODone 50 MG TABLET. PO SCH ×3 (08:06→17:12)
[2019-03-27] MEDS: DIVALPROEX 125 MG CAP.SPRINK PO SCH ×2 (08:06→20:12)
[2019-03-27] MEDS: medroxyPROGESTERone 5 MG TABLET PO SCH (08:08)
[2019-03-27] MEDS: VITS A & D/LANOLIN TOPICAL OINTMENT 56GM TUBE. TP SCH ×2 (08:08→20:12)
[2019-03-27] MEDS: SERTRALINE 50 MG TABLET. PO SCH (08:08)
[2019-03-27] MEDS: LACTULOSE 20 GM/30 ML SOLUTION. PO SCH (08:08)
--- NOTE | 2019-03-27 10:35 | NUR ---
Pt is compliant with his medications and assessment. Pt is calm, confused, cooperative, disorganized but easily redirectable. No agitation, no aggression.
[2019-03-27 15:40] VITALS: BP 108/64
[2019-03-27] MEDS: risperiDONE 2 MG TABLET. PO SCH (20:11)
[2019-03-27] MEDS: MIRTAZAPINE 15 MG TABLET PO SCH (20:11)
[2019-03-27] MEDS: traZODone 100 MG TABLET. PO SCH (20:11)
[2019-03-27] MEDS: traZODone 100 MG TABLET. PO PRN (22:12)
--- NOTE | 2019-03-27 22:44 | PDOC ---
Exam Note: German Note: Please also refer to the separate dictated note~for this date of service dictated separately.~Patient seen individually. Discussed the patient with Nursing staff reviewed the chart.~Reviewed interim history and current functioning. Reviewed vital signs,~Labs/ Radiology~and current medications noted below. Continue current treatment with the changes noted in the dictated addendum note Assessment: Vital Signs/I&O: Vital Signs Date Time Temp Pulse Resp B/P (MAP) Pulse Ox O2 Delivery O2 Flow Rate FiO2 03/27/19 15:40 97.0 85 20 108/64 (79) 98 03/26/19 16:39 Room Air I & O 03/26/19 03/26/19 03/27/19 15:00 23:00 07:00 Intake Total 720 ml 720 ml Balance 720 ml 720 ml Current Medications: I have reviewed the current psychotropics carefully including drug interactions. Risk benefit ratio favors no change other than as noted in my dictated progress note. Diagnosis: Problems: (1) Mental status change resolved (2) Paranoid schizophrenia (3) Anxiety disorder (4) Impulse control disorder (5) Schizoaffective disorder, bipolar type (6) Schizophrenia, paranoid, chronic with acute exacerbation (7) Mixed Alzheimer's and vascular dementia with behavior disturbances (8) Major neurocognitive disorder VAIBHAV RENAE MD Mar 27, 2019 22:44
--- NOTE | 2019-03-27 23:00 | NUR ---
Pt wandering unit this evening. Resistive to medications crushed in chocolate ice cream. Medications consumed after multiple attempts. Pt continued to be restless. Repeat Trazodone and Zyprexa crushed and hidden in chocolate boost. Pt consumed a partial amount of the drink and then spilled it. Unknown how much medication pt consumed. Pt taken to bed with staff x4. Pt did well with dressing change, only attempting to hit staff once.
[2019-03-28 06:00] VITALS: BP 144/84
[2019-03-28 07:45] LABS: BASO % 0 % (0-3); EOS # 0.1 x10^3/uL (0.0-0.7); EOS % 2 % (0-3); HEMATOCRIT 39.6 % (39.0-53.0); HEMOGLOBIN 13.3 g/dL (13.0-17.5); LYMPH # 1.6 x10^3/uL (1.0-4.8); LYMPH % 30 % (24-48); MEAN CORPUSCULAR HEMOGLOBIN 32 pg (25-35); MEAN CORPUSCULAR HGB CONC 34 g/dL (31-37); MEAN CORPUSCULAR VOLUME 95 fL (79-100); MONO # 0.7 x10^3/uL (0.0-1.1); MONO % 12 % (0-9); NEUT # 2.9 x10^3uL (1.8-7.7); NEUT % 55 % (31-73); PLATELET COUNT 76 x10^3/uL (140-400); RED BLOOD COUNT 4.19 x10^6/uL (4.30-5.70); RED CELL DISTRIBUTION WIDTH 12.1 % (11.5-14.5); WHITE BLOOD COUNT 5.3 x10^3/uL (4.0-11.0)
[2019-03-28 07:48] LABS: ALBUMIN 3.7 g/dL (3.4-5.0); CALCIUM 9.1 mg/dL (8.5-10.1); CREATININE 1.1 mg/dL (0.7-1.3); GFR 80.3; POTASSIUM 4.3 mmol/L (3.5-5.1); TOTAL BILIRUBIN 0.5 mg/dL (0.2-1.0); TOTAL PROTEIN 7.5 g/dL (6.4-8.2)
[2019-03-28] MEDS: traZODone 50 MG TABLET. PO SCH ×3 (08:07→17:09)
[2019-03-28] MEDS: DIVALPROEX 125 MG CAP.SPRINK PO SCH ×2 (08:07→19:56)
[2019-03-28] MEDS: medroxyPROGESTERone 5 MG TABLET PO SCH (08:07)
[2019-03-28] MEDS: LACTULOSE 20 GM/30 ML SOLUTION. PO SCH (08:07)
[2019-03-28] MEDS: VITS A & D/LANOLIN TOPICAL OINTMENT 56GM TUBE. TP SCH ×2 (08:08→19:57)
[2019-03-28] MEDS: SERTRALINE 50 MG TABLET. PO SCH (08:08)
--- NOTE | 2019-03-28 10:12 | NUR ---
Pt is calm, confused, cooperative, disorganized but easily redirectable. No agitation, no aggression. Pt is compliant with his medications and assessment.
[2019-03-28 15:45] VITALS: BP 117/76
[2019-03-28] MEDS: traZODone 100 MG TABLET. PO SCH (19:56)
[2019-03-28] MEDS: risperiDONE 2 MG TABLET. PO SCH (19:56)
[2019-03-28] MEDS: MIRTAZAPINE 15 MG TABLET PO SCH (19:56)
--- NOTE | 2019-03-28 21:00 | PDOC ---
Exam Note: German Note: Please also refer to the separate dictated note~for this date of service dictated separately.~Patient seen individually. Discussed the patient with Nursing staff reviewed the chart.~Reviewed interim history and current functioning. Reviewed vital signs,~Labs/ Radiology~and current medications noted below. Continue current treatment with the changes noted in the dictated addendum note Assessment: Vital Signs/I&O: Vital Signs Date Time Temp Pulse Resp B/P (MAP) Pulse Ox O2 Delivery O2 Flow Rate FiO2 03/28/19 15:45 97.0 56 18 117/76 (90) 100 03/26/19 16:39 Room Air I & O 03/27/19 03/27/19 03/28/19 14:59 22:59 06:59 Intake Total 480 ml 240 ml 240 ml Balance 480 ml 240 ml 240 ml Labs: Laboratory Tests Test 03/28/19 07:27 White Blood Count 5.3 x10^3/uL (4.0-11.0) Red Blood Count 4.19 x10^6/uL (4.30-5.70) L Hemoglobin 13.3 g/dL (13.0-17.5) Hematocrit 39.6 % (39.0-53.0) Mean Corpuscular Volume 95 fL (79-100) Mean Corpuscular Hemoglobin 32 pg (25-35) Mean Corpuscular Hemoglobin Concent 34 g/dL (31-37) Red Cell Distribution Width 12.1 % (11.5-14.5) Platelet Count 76 x10^3/uL (140-400) L Neutrophils (%) (Auto) 55 % (31-73) Lymphocytes (%) (Auto) 30 % (24-48) Monocytes (%) (Auto) 12 % (0-9) H Eosinophils (%) (Auto) 2 % (0-3) Basophils (%) (Auto) 0 % (0-3) Neutrophils # (Auto) 2.9 x10^3uL (1.8-7.7) Lymphocytes # (Auto) 1.6 x10^3/uL (1.0-4.8) Monocytes # (Auto) 0.7 x10^3/uL (0.0-1.1) Eosinophils # (Auto) 0.1 x10^3/uL (0.0-0.7) Basophils # (Auto) 0.0 x10^3/uL (0.0-0.2) Sodium Level 142 mmol/L (136-145) Potassium Level 4.3 mmol/L (3.5-5.1) Chloride Level 103 mmol/L (98-107) Carbon Dioxide Level 29 mmol/L (21-32) Anion Gap 10 (6-14) Blood Urea Nitrogen 22 mg/dL (8-26) Creatinine 1.1 mg/dL (0.7-1.3) Estimated GFR (Cockcroft-Gault) 80.3 BUN/Creatinine Ratio 20 (6-20) Glucose Level 122 mg/dL (70-99) H Calcium Level 9.1 mg/dL (8.5-10.1) Total Bilirubin 0.5 mg/dL (0.2-1.0) Aspartate Amino Transferase (AST) 15 U/L (15-37) Alanine Aminotransferase (ALT) 19 U/L (16-63) Alkaline Phosphatase 67 U/L (46-116) Total Protein 7.5 g/dL (6.4-8.2) Albumin 3.7 g/dL (3.4-5.0) Albumin/Globulin Ratio 1.0 (1.0-1.7) Current Medications: I have reviewed the current psychotropics carefully including drug interactions. Risk benefit ratio favors no change other than as noted in my dictated progress note. Diagnosis: Problems: (1) Major neurocognitive disorder (2) Mixed Alzheimer's and vascular dementia with behavior disturbances (3) Schizophrenia, paranoid, chronic with acute exacerbation (4) Schizoaffective disorder, bipolar type (5) Impulse control disorder (6) Anxiety disorder VAIBHAV RENAE MD Mar 28, 2019 20:59
--- NOTE | 2019-03-28 23:54 | NUR ---
Pt has been restless and disorganized all evening. Meds crushed and hidden in chocolate ice cream. Medications consumed after multiple attempts. No agitation or combativeness with cares.
--- NOTE | 2019-03-29 00:58 | PN ---
DATE: 03/27/2019 PSYCHIATRIC PROGRESS NOTE This late entry 03/27/2019 covers the elements not covered in my initial note. SUBJECTIVE: I met with the patient in the evening of 03/27/2019. The patient slept 5-3/4 hours previous night. He has not been combative, did well during the day, but confused, somewhat paranoid. REVIEW OF SYSTEMS: No CV, , pulmonary, eye, ENT system symptoms on review. Reliability is poor. MENTAL STATUS EXAM: Oriented to himself. Insight, judgment, recent and remote memory, attention, concentration, fund of knowledge poor, consistent with his diagnosis mentioned in my initial note. PLAN: No change from initial note. MAN Joyce RENAE MD DR: ROMINA/sung JOB#: [id number] / [id number]
[2019-03-29 05:44] VITALS: BP 110/72
[2019-03-29] MEDS: traZODone 50 MG TABLET. PO SCH ×3 (07:34→17:21)
[2019-03-29] MEDS: LACTULOSE 20 GM/30 ML SOLUTION. PO SCH (07:34)
[2019-03-29] MEDS: medroxyPROGESTERone 5 MG TABLET PO SCH (07:35)
[2019-03-29] MEDS: SERTRALINE 50 MG TABLET. PO SCH (07:35)
[2019-03-29] MEDS: DIVALPROEX 125 MG CAP.SPRINK PO SCH ×2 (07:36→20:03)
[2019-03-29] MEDS: VITS A & D/LANOLIN TOPICAL OINTMENT 56GM TUBE. TP SCH ×2 (07:37→20:03)
--- NOTE | 2019-03-29 09:00 | NUR ---
Patient remains in bed, eyes closed, NAD. Will allow patient to continue to sleep and hold morning meds at this time.
--- NOTE | 2019-03-29 13:07 | PN ---
DATE: 03/26/2019 PSYCHIATRIC PROGRESS NOTE This late entry 03/26/2019 covers elements not covered in my initial note. SUBJECTIVE: I met with the patient evening of 03/26/2019. The patient slept "5-1/2 hours previous night. He remains calm, takes meds and Ensure. He does aggressive head-butting the nursing staff during showers, but otherwise redirectable. REVIEW OF SYSTEMS: No CV, , pulmonary, eye, ENT system symptoms on review. Reliability poor. MENTAL STATUS EXAM: Oriented to himself. Insight, judgment, recent and remote memory. Attention, concentration, fund of knowledge poor, consistent with his diagnosis mentioned in my initial note. PLAN: No change from initial note. MAN Joyce RENAE MD DR: ROMINA/sung JOB#: [id number] / [id number]
--- NOTE | 2019-03-29 14:53 | NUR ---
Patient got up about 11:20 on his own, was compliant with staff when they changed his soiled clothes at that time. Patient walked up and down the hallway, talking under his breath, he was compliant with morning meds crushed and placed in Ensure. Patient has been redirectable when he wanders into other patient's rooms. He is standing next to the windows in the east hallway's entranceway talking to himself while methodically moving his hands on the windowsill. Patient is calm, disorganized, and confused; will continue to monitor.
[2019-03-29 16:32] VITALS: BP 91/59
--- NOTE | 2019-03-29 19:19 | PDOC ---
Exam Note: Egrman Note: Please also refer to the separate dictated note~for this date of service dictated separately.~Patient seen individually. Discussed the patient with Nursing staff reviewed the chart.~Reviewed interim history and current functioning. Reviewed vital signs,~Labs/ Radiology~and current medications noted below. Continue current treatment with the changes noted in the dictated addendum note Assessment: Vital Signs/I&O: Vital Signs Date Time Temp Pulse Resp B/P (MAP) Pulse Ox O2 Delivery O2 Flow Rate FiO2 03/29/19 16:32 97.0 90 18 91/59 (70) 94 03/26/19 16:39 Room Air I & O 03/28/19 03/28/19 03/29/19 15:00 23:00 07:00 Intake Total 600 ml 120 ml 240 ml Balance 600 ml 120 ml 240 ml Current Medications: I have reviewed the current psychotropics carefully including drug interactions. Risk benefit ratio favors no change other than as noted in my dictated progress note. Diagnosis: Problems: (1) Mixed Alzheimer's and vascular dementia with behavior disturbances (2) Schizophrenia, paranoid, chronic with acute exacerbation (3) Schizoaffective disorder, bipolar type (4) Impulse control disorder (5) Anxiety disorder (6) Paranoid schizophrenia VAIBHAV RENAE MD Mar 29, 2019 19:19
[2019-03-29] MEDS: traZODone 100 MG TABLET. PO SCH (20:03)
[2019-03-29] MEDS: risperiDONE 2 MG TABLET. PO SCH (20:03)
[2019-03-29] MEDS: MIRTAZAPINE 15 MG TABLET PO SCH (20:03)
[2019-03-29] MEDS: traZODone 100 MG TABLET. PO PRN (22:37)
--- NOTE | 2019-03-29 22:40 | NUR ---
Pt wandering unit this evening. Compliant with crushed medications in chocolate ice cream. Pt changed and put to bed without incident. Pt slept for a short amount of time. Pt currently restless in the dayroom, attempting to move furniture and door checking. Repeat Trazodone and Zyprexa administered in chocolate pudding. Will continue to monitor.
[2019-03-30 05:49] VITALS: BP 143/79
[2019-03-30] MEDS: VITS A & D/LANOLIN TOPICAL OINTMENT 56GM TUBE. TP SCH ×2 (09:00→19:38)
--- NOTE | 2019-03-30 11:00 | NUR ---
SW faxed over updated notes to [facility], noting that pt is to discharge on . [facility] will plan to follow up with the facility to set up transport time.
[2019-03-30] MEDS: LACTULOSE 20 GM/30 ML SOLUTION. PO SCH (11:15)
[2019-03-30] MEDS: DIVALPROEX 125 MG CAP.SPRINK PO SCH ×2 (11:15→19:37)
[2019-03-30] MEDS: traZODone 50 MG TABLET. PO SCH ×3 (11:15→17:04)
[2019-03-30] MEDS: medroxyPROGESTERone 5 MG TABLET PO SCH (11:15)
[2019-03-30] MEDS: SERTRALINE 50 MG TABLET. PO SCH (11:16)
--- NOTE | 2019-03-30 13:05 | PN ---
DATE: 03/29/2019 This late entry, 03/29/2019, covers elements not covered in my initial note. SUBJECTIVE: I met with the patient evening of 03/29/2019. The patient slept until about 11:30 a.m., slept 6-1/2 hours prior to that at night. He remains psychotic, muttering to himself into the velez in the evening. His medications are given crushed in food. REVIEW OF SYSTEMS: No CV, , pulmonary, eye, ENT system symptoms on review. Reliability poor. MENTAL STATUS EXAMINATION: Oriented to himself. Insight, judgment, recent and remote memory, attention, concentration, fund of knowledge poor, consistent with his diagnosis mentioned in my initial note. PLAN: No change from initial note. MAN Joyce RENAE MD DR: ROMINA/sung JOB#: [id number] / [id number]
--- NOTE | 2019-03-30 15:21 | NUR ---
Patient was gotten up about 12:00, was compliant with staff when they changed his soiled clothes at that time. Patient walked up and down the hallway, he was restless and would not stay seated in dining room for lunch. Patient has been redirectable when he wanders into other patient's rooms. He appears to continue to hallucinate, talking to himself and moving his hands in the air and on the velez as though manipulating objects. At one point he pointed to a female staff member then the corner of his mouth. When she asked what he wanted, he stated 'I ain't been kissed in a week'. Patient has been compliant with medications hidden in food. Will continue to monitor.
[2019-03-30 16:12] VITALS: BP 153/70
--- NOTE | 2019-03-30 18:46 | PDOC ---
Exam Note: German Note: Please also refer to the separate dictated note~for this date of service dictated separately.~Patient seen individually. Discussed the patient with Nursing staff reviewed the chart.~Reviewed interim history and current functioning. Reviewed vital signs,~Labs/ Radiology~and current medications noted below. Continue current treatment with the changes noted in the dictated addendum note Assessment: Vital Signs/I&O: Vital Signs Date Time Temp Pulse Resp B/P (MAP) Pulse Ox O2 Delivery O2 Flow Rate FiO2 03/30/19 16:12 97.1 93 18 153/70 (97) 100 Room Air I & O 03/29/19 03/29/19 03/30/19 14:59 22:59 06:59 Intake Total 240 ml 720 ml Balance 240 ml 720 ml Current Medications: I have reviewed the current psychotropics carefully including drug interactions. Risk benefit ratio favors no change other than as noted in my dictated progress note. Diagnosis: Problems: (1) Mixed Alzheimer's and vascular dementia with behavior disturbances (2) Schizophrenia, paranoid, chronic with acute exacerbation (3) Schizoaffective disorder, bipolar type (4) Impulse control disorder (5) Anxiety disorder (6) Paranoid schizophrenia VAIBHAV RENAE MD Mar 30, 2019 18:46
[2019-03-30] MEDS: risperiDONE 2 MG TABLET. PO SCH (19:36)
[2019-03-30] MEDS: MIRTAZAPINE 15 MG TABLET PO SCH (19:37)
[2019-03-30] MEDS: traZODone 100 MG TABLET. PO SCH (19:37)
[2019-03-30] MEDS: traZODone 100 MG TABLET. PO PRN (23:18)
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
--- NOTE | 2019-03-30 23:47 | NUR ---
Pt wandering in the day room this evening at shift change. Pt calm, disorganized, interactive with staff. Pt cooperative with assessment, medications administered crushed in chocolate ice cream which pt consumed. Pt restless, exit seeking, and door checking. PRN repeat Trazodone and PRN Zydis administered as ordered for insomnia and agitation.
[2019-03-31 05:45] VITALS: BP 135/88
[2019-03-31] MEDS: medroxyPROGESTERone 5 MG TABLET PO SCH (07:36)
[2019-03-31] MEDS: LACTULOSE 20 GM/30 ML SOLUTION. PO SCH (07:36)
[2019-03-31] MEDS: DIVALPROEX 125 MG CAP.SPRINK PO SCH ×2 (07:36→20:20)
[2019-03-31] MEDS: traZODone 50 MG TABLET. PO SCH ×3 (07:36→17:06)
[2019-03-31] MEDS: SERTRALINE 50 MG TABLET. PO SCH (07:42)
[2019-03-31] MEDS: buPROPion 75 MG TABLET PO SCH ×2 (07:42→13:55)
[2019-03-31] MEDS: VITS A & D/LANOLIN TOPICAL OINTMENT 56GM TUBE. TP SCH ×2 (09:00→20:21)
[2019-03-31] MEDS ORDERED: buPROPion XL 150 MG TAB.ER.24H PO SCH (09:00)
--- NOTE | 2019-03-31 11:00 | NUR ---
Patient was up wandering, restless, disorganized, and confused and shift change. he has been difficult to redirect at times. He started to become intrusive with another patient in the west hallway, patients were . Patient would posture as if he was agitated then step back and laugh, stating 'Man you know i ain't violent'. He repeated this behavior several times with myself and onther staff member, getting very close adn acting aggressive, then backing off, occasionally laughing. PRN medication provided per eMAR, will continue to monitor.
--- NOTE | 2019-03-31 18:11 | NUR ---
Patient has not demonstrated any more aggressive behavior today, though he has been difficult to redirect at times. He has been cooperative with medications crushed and hidden in drinks. Will continue to monitor.
[2019-03-31] MEDS: risperiDONE 2 MG TABLET. PO SCH (20:20)
[2019-03-31] MEDS: traZODone 100 MG TABLET. PO SCH (20:20)
[2019-03-31] MEDS: MIRTAZAPINE 15 MG TABLET PO SCH (20:21)
[2019-03-31] MEDS: MELATONIN 3 MG TABLET PO SCH (20:21)
--- NOTE | 2019-03-31 21:51 | PDOC ---
Exam Note: German Note: Please also refer to the separate dictated note~for this date of service dictated separately.~Patient seen individually. Discussed the patient with Nursing staff reviewed the chart.~Reviewed interim history and current functioning. Reviewed vital signs,~Labs/ Radiology~and current medications noted below. Continue current treatment with the changes noted in the dictated addendum note Assessment: Vital Signs/I&O: Vital Signs Date Time Temp Pulse Resp B/P (MAP) Pulse Ox O2 Delivery O2 Flow Rate FiO2 03/31/19 05:45 106 20 135/88 (104) 88 03/30/19 16:12 97.1 Room Air I & O 03/30/19 03/30/19 03/31/19 15:00 23:00 07:00 Intake Total 240 ml 920 ml Balance 240 ml 920 ml Current Medications: Meds: Current Medications Medications (Trade) Dose Ordered Sig/Edward Route PRN Reason Start Time Stop Time Status Last Admin Dose Admin Sertraline HCl (Zoloft) 50 mg DAILY PO 03/31/19 09:00 03/31/19 07:42 Bupropion HCl (Wellbutrin) 75 mg BID92 PO 03/31/19 09:00 03/31/19 13:55 Melatonin 6 mg QHS PO 03/31/19 21:00 03/31/19 20:21 I have reviewed the current psychotropics carefully including drug interactions. Risk benefit ratio favors no change other than as noted in my dictated progress note. 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
--- NOTE | 2019-04-01 01:20 | NUR ---
Pt wandering in the day room this evening at shift change. Pt calm, disorganized, interactive with staff. Pt cooperative with assessment, medications administered crushed in chocolate ice cream which pt consumed. After receiving his HS medications, pt sat down in a chair in the day room and fell asleep before being escorted to his room by staff and assisted to bed.
--- NOTE | 2019-04-01 02:33 | PN ---
DATE: 03/30/2019 PSYCHIATRIC PROGRESS NOTE This late entry, 03/30/2019, covers elements not covered in my initial note. SUBJECTIVE: I met with the patient in the evening of 03/30/2019. The patient slept 5 hours previous night. Reportedly, there is no significant change with him. He has been wandering most of the day, was wandering at night, got repeat trazodone, slept till noon, little more confused in the evening, but cooperative, intermittently agitated. REVIEW OF SYSTEMS: No CV, , pulmonary, eye, ENT system symptoms on review. Reliability poor. MENTAL STATUS EXAM: Oriented to himself. Insight, judgment, recent and remote memory, attention, concentration, fund of knowledge poor, consistent with his diagnosis mentioned in my initial note. PLAN: The patient remains a little sedated during the day. We will go ahead and reduce the Zoloft to 50 mg a day. Add Wellbutrin XL 150 mg a day. Continue rest psychotropics unchanged. MAN Joyce RENAE MD DR: ROMINA/sung JOB#: [id number] / [id number]
[2019-04-01] MEDS ORDERED: DIVA125C2 PO ×2 (04:15→04:16)
[2019-04-01] MEDS ORDERED: ACET325T9 PO (04:15)
[2019-04-01] MEDS ORDERED: MAG355OR17 PO (04:16)
[2019-04-01] MEDS ORDERED: MAGN2400 PO (04:16)
[2019-04-01] MEDS ORDERED: MIRT15TA3 PO (04:17)
[2019-04-01] MEDS ORDERED: METH29OI TP (04:17)
[2019-04-01] MEDS ORDERED: OLAN5TAB5 PO (04:18)
[2019-04-01] MEDS ORDERED: BUPR75TA6 PO (04:19)
[2019-04-01] MEDS ORDERED: RISP1TAB3 PO (04:21)
[2019-04-01] MEDS ORDERED: TRAZ-86 PO (04:22)
[2019-04-01] MEDS ORDERED: TRAZ-120 PO ×2 (04:23→04:24)
[2019-04-01 06:36] VITALS: BP 143/83
[2019-04-01] MEDS: SERTRALINE 50 MG TABLET. PO SCH (07:55)
[2019-04-01] MEDS: traZODone 50 MG TABLET. PO SCH ×3 (07:55→17:22)
[2019-04-01] MEDS: buPROPion 75 MG TABLET PO SCH ×2 (07:55→13:37)
[2019-04-01] MEDS: medroxyPROGESTERone 5 MG TABLET PO SCH (07:55)
[2019-04-01] MEDS: LACTULOSE 20 GM/30 ML SOLUTION. PO SCH (07:55)
[2019-04-01] MEDS: DIVALPROEX 125 MG CAP.SPRINK PO SCH ×2 (07:56→19:54)
--- NOTE | 2019-04-01 08:54 | NUR ---
KWASI contacted pt Yue VILLALPANDO at [facility] and [facility], to discuss pt return today. Yue reports that she was told that he was supposedly returning today, according to nursing; however, she was not fully sure. KWASI reported that pt is for sure leaving today and would need transportation. Yue will plan to discuss this with her director of graduate admissions. KWASI and Yue discussed other potential placements and mentioned that she sent referrals to [facility], who turned pt down at the moment and couple other non-behavioral placements per dtrs request. KWASI mentioned a couple and sent an email to Yue with those facilities, as well as their numbers.
[2019-04-01] MEDS: VITS A & D/LANOLIN TOPICAL OINTMENT 56GM TUBE. TP SCH ×2 (09:00→19:53)
--- NOTE | 2019-04-01 10:06 | NUR ---
WEEKLY ACTIVITY THERAPY NOTE Date of Admission: 02/27/2019 Date of AT Assessment: 03/02/2019 Goal aimed: to increase sensory stimulation/ engagement. Initial Goal: Pt. will participate in at least one individual activity before discharge. Weekly progress towards goal: did not achieve Group participation level: zero Weekly highlights: around group more this week Behaviors observed: walking around often, tilting over a side table, pulling on window, checking door handles, tried to pull wang out of garden Plan: no change to goal Beneficial adaptations: gentle explanations with care, hand over hand assistance
[2019-04-01] MEDS ORDERED: MELA3TAB56 PO (10:32)
--- NOTE | 2019-04-01 12:15 | NUR ---
[facility] Social Work Discharge Planning Form Patient Name ZENON HAM Admit Date: 02/26/19 DISCHARGE PLAN Discharge Destination: [facility] Care Assessment: N/A Level II Assessment: N/A Transportation: Placement to pick pt up Special Instructions/Notes: Please fax discharge orders and medication list to the facility fax listed below. DISCHARGE TO FACILITY Facility: [facility] Address: [address] [place] [address]; [place] [address] Contact Name: Yue (SW) or Donny (production director): Contact Name: Please ask for the nurse caring for pt upon admission: PCP: Sees facility physician for continued care
--- NOTE | 2019-04-01 12:15 | NUR ---
SW left a message with admissions to discuss pt discharge today and not having a pickling solution maker/ transport time as of yet. KWASI requested that SW give a call back [facility] re: pt re-admission back to them.
--- NOTE | 2019-04-01 14:12 | NUR ---
SW received call from Joseph, admissions at [facility]. She has requested that pt be discharged tomorrow as pt dtr has to come in and re-sign paperwork as pt has been gone for over a month. She has set up transport with a company as it will be scheduled for 1400.
[2019-04-01 15:55] VITALS: BP 94/69
[2019-04-01] MEDS: MIRTAZAPINE 15 MG TABLET PO SCH (19:53)
[2019-04-01] MEDS: MELATONIN 3 MG TABLET PO SCH (19:53)
[2019-04-01] MEDS: traZODone 100 MG TABLET. PO SCH (19:54)
[2019-04-01] MEDS: risperiDONE 2 MG TABLET. PO SCH (19:54)
--- NOTE | 2019-04-01 21:06 | PDOC ---
Exam Note: German Note: Please also refer to the separate dictated note~for this date of service dictated separately.~Patient seen individually. Discussed the patient with Nursing staff reviewed the chart.~Reviewed interim history and current functioning. Reviewed vital signs,~Labs/ Radiology~and current medications noted below. Continue current treatment with the changes noted in the dictated addendum note Assessment: Vital Signs/I&O: Vital Signs Date Time Temp Pulse Resp B/P (MAP) Pulse Ox O2 Delivery O2 Flow Rate FiO2 04/01/19 15:55 97.8 91 20 94/69 (77) 98 03/30/19 16:12 Room Air I & O 03/31/19 03/31/19 04/01/19 15:00 23:00 07:00 Intake Total 720 ml 240 ml 240 ml Balance 720 ml 240 ml 240 ml Current Medications: I have reviewed the current psychotropics carefully including drug interactions. Risk benefit ratio favors no change other than as noted in my dictated progress note. 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
[2019-04-01] MEDS: traZODone 100 MG TABLET. PO PRN (22:07)
--- NOTE | 2019-04-02 01:18 | PN ---
DATE: 03/31/2019 PSYCHIATRIC PROGRESS NOTE This late entry 03/31/2019 covers elements not covered in my initial note. SUBJECTIVE: I met with the patient on evening of 03/31/2019. The patient slept just half hour previous night. He has been resistive to cares, more awake during the day. 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 He received Zyprexa at 10:00 a.m., Zyprexa and trazodone at 2330 and did better. REVIEW OF SYSTEMS: No CV, , PULMONARY, EYE, ENT system symptoms on review. Reliability poor. MENTAL STATUS EXAM: Oriented to himself. Insight, judgment, recent and remote memory, attention, concentration, fund of knowledge poor, consistent with his diagnosis mentioned in my initial note. PLAN: Start melatonin 6 mg p.o. at bedtime. Maintain rest of the psychotropics unchanged, then we will see how he sleeps on the melatonin before deciding on the next step. Possible transition to shelter this week. MAN Joyce RENAE MD DR: ROMINA/sung JOB#: [id number] / [id number]
--- NOTE | 2019-04-02 02:25 | NUR ---
Pt wandering in the day room this evening at shift change. Pt calm, disorganized, interactive with staff. Pt cooperative with assessment, medications administered crushed in chocolate ice cream which pt consumed. PRN repeat Trazodone administered for sleep.
[2019-04-02 06:27] VITALS: BP 147/88
[2019-04-02] MEDS: DIVALPROEX 125 MG CAP.SPRINK PO SCH (08:41)
[2019-04-02] MEDS: traZODone 50 MG TABLET. PO SCH ×3 (08:41→17:00)
[2019-04-02] MEDS: VITS A & D/LANOLIN TOPICAL OINTMENT 56GM TUBE. TP SCH (08:42)
[2019-04-02] MEDS: buPROPion 75 MG TABLET PO SCH ×2 (08:42→13:28)
[2019-04-02] MEDS: SERTRALINE 50 MG TABLET. PO SCH (08:42)
[2019-04-02] MEDS: LACTULOSE 20 GM/30 ML SOLUTION. PO SCH (08:42)
[2019-04-02] MEDS: medroxyPROGESTERone 5 MG TABLET PO SCH (08:42)
--- NOTE | 2019-04-02 12:23 | NUR ---
Patient was in the dayroom during rounding. Took medications crushed in pudding, allowed for morning assessment. Pt was dosing off on the couch watching tv. No agitation noted, pt denies pain. Patient is also leaving this afternoon. Will continue to monitor.
--- NOTE | 2019-04-02 14:45 | NUR ---
KWASI received a voice message from Ankur Whitney at , aix system administrator at [facility] re: pt admission. According to the message, Ankur reports that they are not able to accept pt back as he has had too many out of control behaviors and they cannot handle him. "The state has been called in multiple times because of him and I have to think of the safety of our other residents. So we are not going to take him back". KWASI had the Property Developer also listen to the voice mail. KWASI and the Property Developer called [facility] and spoke with Donny re: the voicemail that pt was not allowed to return. Donny reports that he is not the one to speak with as he was not told that was the case. KWASI informed Donny that Joseph in admissions informed KWASI yesterday that pt would be coming back but needed an extra day for pt dtr to sign the paperwork and set up transport for 1400, which also has not shown up. Donny sent KWASI and Property Developer to speak with Joseph who reports that she was just told pt was not able to come back and asked for the aix system administrator to contact KWASI back to further discuss this. KWASI contacted pt dtr, Rose, to see if she signed paperwork last night or this morning, in which Rose stated "I came in and signed the paperwork this morning. The same lady who had the re-admit papers tried to bring up pt Medicaid status and I told her I am not on any of his finances. His check goes directly to the facility and they do whatever with it. That is not in my control and understood they would be his payee". KWASI agreed that if the facility was the payee, they should be in charge of re-instating pt insurance. Pt dtr also commented on staff and their communication tactics stating "they are horrible there. I try to work with them the best I can but they are horrible". KWASI informed Rose of what has transpired to which she stated "that is horrible. How in the hell can they do that? Excuse my language, but they can't do that to you guys". She continued to state that when [facility] initially attempted to find placement, she was told that if they could not find a place, they would have to send him home with her. "I love my dad, but if they can't take care of him, how am I supposed to?! I work 2 jobs and have a little one at home. I cannot care for my Dad as terrible as that sounds". KWASI will contact [place] with an update and let her know the final outcome. KWASI and Property Developer then returned call to Ankur, aix system administrator, who reports that she was sent a text by a staff member stating that they absolutely could not take pt back. Ankur reports that she "understands the predicament it puts us in; however, she has to also look at their safety concerns and others". It was explained to Ankur, that on 3 occasions, we have notes that state that pt would be accepted back at the end of his stay by Donny Buckner and Joseph. Furthermore, pt was supposed to leave yesterday and was asked by Joseph to move it so that pt dtr could sign re-admitting paperwork. Ankur was stunned about this factor and asked if the paperwork had been signed. KWASI explained to her that the dtr signed paperwork this AM and said the same lady who had the paperwork talked to her about Medicaid. And that throughout this stay, KWASI has sent multiple updated notes in which no one reached out to express any concern about not being able to take pt back. "She must have talked to our billing person, Dayanna, who is trustworthy". Ankur is going to contact DEMARIO Buckner and get back to . Less than 5 minutes later, KWASI was told by Ankur, that pt for sure would be accepted back to the facility and SW would be able to call and have transport set up and nursing would be able to give report. KWASI and the Property Developer called back and asked to speak to Joseph in admissions and was transferred to [facility]. KWASI hit zero and then asked to speak to Yue in who was on the phone. KWASI asked to speak to the nurse, in which the Property Developer attempted to ask the nurse about getting things gathered for pt return there in which the nurse rudely and aggressively interrupted "we are not taking Reji Dunaway back, he is not welcomed here and I don't need to talk to you". The Property Developer asked the nurses name in which the nurse said "my name is Nurse" and then hung up on the Property Developer. Both parties called back and spoke with Julio; it was asked that SW and the Property Developer NOT be placed on hold, as for the last 30 minutes, we have been transferred with no success and would like to speak to someone immediately". Julio placed SW and Property Developer on hold and Brianna picked up the line to explain that "Joseph was giving a tour, the DEMARIO Buckner was out and SW was on the phone". KWASI explained that they are to receive a pt and needed to have transportation set up. KWASI gave Brianna the name of the pt and she reports that she will have Joseph contact [facility] with a transport time. Under the circumstances, all parties, with the exception of Brianna was very short and rude. KWASI has reached out to Negative Cleaner Mike Ray of [facility] to ask their complaint policy as KWASI will plan to file a complaint re: this process and the lack of communication not just had with [facility] but within their own community. KWASI has not been contacted back as of yet.
--- NOTE | 2019-04-02 16:54 | NUR ---
KWASI received a call from Joseph who reports that they are setting up transportation with [facility] [employer]. She wanted to double check the room number and would call KWASI right back with a transport time. At this time, pt transport is schedule for around 1800 by derick/parul hickey.
--- NOTE | 2019-04-02 18:30 | NUR ---
Transition Record was faxed to follow-up provider with the following elements: Reason for admission, procedures, tests, principal diagnosis, pending studies, patient instructions, 17/02 contact information for unit, phone number to obtain pending test results, plan for follow-up care, physician follow-up, advanced directive information, and medication list with dose, duration and instructions. This information was included in the following documents: History and physical, lab results, study results, progress notes, social work planning form, DC instruction form, patient visit summary, and medication reconciliation form. Date & time record faxed:04/01/19 1771 Record faxed to: [facility] Record discussed with/ report given to: Park
--- NOTE | 2019-04-02 21:55 | PDOC ---
Exam Note: German Note: Please also refer to the separate dictated note~for this date of service dictated separately.~Patient seen individually. Discussed the patient with Nursing staff reviewed the chart.~Reviewed interim history and current functioning. Reviewed vital signs,~Labs/ Radiology~and current medications noted below. Continue current treatment with the changes noted in the dictated addendum note Assessment: Vital Signs/I&O: Vital Signs Date Time Temp Pulse Resp B/P (MAP) Pulse Ox O2 Delivery O2 Flow Rate FiO2 04/02/19 06:27 97.0 108 20 147/88 (107) 93 Room Air I & O 04/01/19 04/01/19 04/02/19 14:59 22:59 06:59 Intake Total 240 ml 240 ml 240 ml Balance 240 ml 240 ml 240 ml Current Medications: I have reviewed the current psychotropics carefully including drug interactions. Risk benefit ratio favors no change other than as noted in my dictated progress note. Diagnosis: Problems: (1) Anxiety disorder (2) Impulse control disorder (3) Schizoaffective disorder, bipolar type (4) Schizophrenia, paranoid, chronic with acute exacerbation (5) Mixed Alzheimer's and vascular dementia with behavior disturbances (6) Major neurocognitive disorder VAIBHAV RENAE MD Apr 02, 2019 21:55
--- NOTE | 2019-04-03 11:46 | PN ---
DATE: 04/01/2019 PSYCHIATRIC PROGRESS NOTE This late entry of 04/01/2019 covers elements not covered in my initial note. SUBJECTIVE: I met with the patient in the evening of 04/01/2019 and staffed at a treatment team meeting in the morning. The patient is sleeping reasonably. He remains confused, somewhat paranoid, but not aggressive. REVIEW OF SYSTEMS: No CV, , pulmonary, eye, ENT system symptoms on review. MENTAL STATUS EXAM: Oriented to himself. Insight, judgment, recent and remote memory, attention, concentration, fund of knowledge poor, consistent with his diagnosis mentioned in my initial note. PLAN: No change from initial note. We had planned for a transition to shelter on 04/01/2019, but shelter staffs are unable to accept him and we will postpone it to 04/02/2019. MAN Joyce RENAE MD DR: ROMINA/sung JOB#: [id number] / [id number]
--- NOTE | 2019-04-04 15:03 | DS ---
DATE OF DISCHARGE: 04/02/2019 PSYCHIATRIC PROGRESS NOTE This late entry of 04/02/2019 covers elements not covered in my initial note. REASON FOR ADMISSION: Please refer to the admission history for details. Briefly, the patient is a 68-year-old, -[place] male referred to us from [facility] by his primary care physician on account of increased agitation, aggression, striking out at staff and other residents. He was noncompliant with ADLs, threatening to kill others. This is within the context of his dementia/major neurocognitive disorder, Alzheimer's vascular with delusion, depression, behavioral disturbance and schizophrenia, chronic paranoid with acute exacerbation. He had failed outpatient psychiatric interventions resulting in this referral. SIGNIFICANT FINDINGS AND CLINICAL COURSE: Following the admission, the patient was seen by me daily individually from a psychiatric standpoint. Medical followup per Dr. Soni. He had a very complicated course. He responded initially in a very limited manner to changes in his psychotropics and then appeared to gradually do better. He was initially extremely psychotic, labile, aggressive, disruptive, had to be in the west hallway away from all stimuli and all of this improved gradually as the psychotropics stabilized. He seemed to be finally stabilized on a combination of Depakote Sprinkles 750 mg a.m. and 1000 mg at bedtime with a Valproic acid level therapeutic at 60, Zoloft 50 mg a day, Wellbutrin 75 mg b.i.d., Provera 10 mg daily. He had been continued for his sexually aggressive behaviors, Zyprexa p.r.n., trazodone 100 mg at bedtime, november repeat x 1; Remeron 15 mg at bedtime for insomnia and anxiety, trazodone scheduled 25 mg at 0900 and 1700 and 37.5 mg at 1300, Risperdal 5 mg at bedtime after other changes in his antipsychotics had failed. He was also on melatonin 6 mg at bedtime. Prior to discharge on 04/02/2019, no CV, , pulmonary, eye, ENT system symptoms on review. Reliability poor. MENTAL STATUS EXAM: Oriented to himself. Insight, judgment, recent and remote memory, attention, concentration, fund of knowledge poor, consistent with his diagnosis mentioned in my initial note. FINAL DIAGNOSES: Major neurocognitive disorder; Alzheimer, vascular with delusion; depression; behavioral disturbance; anxiety disorder, unspecified; impulse control disorder, unspecified. Rest unchanged from admission. DISCHARGE MEDICATIONS: Please refer to the [facility]. DISCHARGE INSTRUCTIONS: Outpatient psychiatric and medical followup at the detention. VAIBHAV RENAE MD DR: ROMINA/sung JOB#: [id number] / [id number]
== END 2019-04-02 18:31 | DRG 885 ==
LOC: ER 18:50 → GEROPSY 22:28
PROVIDERS: ADMIT Psychiatry & Neurology Psychiatry; ATTEND Psychiatry & Neurology Psychiatry
DX: F25.0 Schizoaffective disorder, bipolar type (principal); F01.51 Vascular dementia, unspecified severity, with behavioral disturbance; F02.81 Dementia in other diseases classified elsewhere, unspecified severity, with behavioral disturbance; G30.9 Alzheimer's disease, unspecified; F01.50 Vascular dementia, unspecified severity, without behavioral disturbance, psychotic disturbance, mood disturbance, and anxiety; F63.9 Impulse disorder, unspecified; D69.6 Thrombocytopenia, unspecified; E11.9 Type 2 diabetes mellitus without complications; E78.5 Hyperlipidemia, unspecified; I10 Essential (primary) hypertension; Z79.899 Other long term (current) drug therapy; Z91.14 Patient's other noncompliance with medication regimen; Z91.19 Patient's noncompliance with other medical treatment and regimen; Z91.83 Wandering in diseases classified elsewhere; D64.9 Anemia, unspecified; G47.00 Insomnia, unspecified; K59.00 Constipation, unspecified; M19.90 Unspecified osteoarthritis, unspecified site
CPT/HCPCS: 36415; 70450; 71045; 80048; 80053; 80061; 80076; 80164; 80307; 81001; 82140; 82306; 82550; 83036; 83540; 83550; 83690; 83735; 83880; 84436; 84443; 84480; 84484; 85025; 85610; 85651; 85730; 86592; 93005; 96372; G0238; J2060; J3486; Q0163; 99285-25